=== PATIENT | female | born 1955 | race Caucasian/White ===

== ENCOUNTER → 2018-01-11 09:31 | Outpatient (CLI) | payer OTHER, SELFPAY ==
--- NOTE | 2018-01-11 | DI.MG.S_ITS ---
BILATERAL DIGITAL SCREENING MAMMOGRAM 3D/2D WITH CAD: 01/11/2018 CLINICAL: Routine screening. Comparison is made to exams dated: 09/03/2016 mammogram, 04/22/2015 mammogram, and 04/17/2014 mammogram - [facility]. The tissue of both breasts is extremely dense, which lowers the sensitivity of mammography. Current study was also evaluated with a Computer Aided Detection (CAD) system. No significant masses, calcifications, or other findings are seen in either breast. There has been no significant interval change. IMPRESSION: NEGATIVE There is no mammographic evidence of malignancy. A 1 year screening mammogram is recommended. This exam was interpreted at Station ID: [id number]. NOTE: For mammograms, a report in lay terms will be sent to the patient. Approximately 15% of breast malignancies will not be visualized mammographically. In the management of a palpable breast mass, a negative mammogram must not discourage biopsy of a clinically suspicious lesion. Electronically Signed By: Nevaeh molina/yuriy:01/11/2018 10:21:19 letter sent: Normal Exam ACR BI-RADS Category 1: Negative 3341F
--- NOTE | 2018-01-11 | DI.RAD.S_ITS ---
PROCEDURE: XR WRIST LT MIN 3V INDICATIONS: LEFT WRIST PAIN TECHNIQUE: 3 views of the wrist were acquired. COMPARISON: [facility], CR, XR HAND LEFT 3+V, 03/30/2016, 12:33 PM. FINDINGS: Bones: No fractures or dislocations. No suspicious bony lesions. Mild subluxation of the first metacarpal phalangeal joint is unchanged. Marginal spurring of the first metacarpal head. Cystic changes in the distal pole of the scaphoid again noted. Scaphoid view: Not requested Soft tissues: No suspicious soft tissue calcifications. IMPRESSION: 1. No acute bony abnormality. 2. 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 3. Probable interosseous ganglion distal pole of the scaphoid. Dictated by: Zheng Duque M.D. on 01/11/2018 at 10:27 Approved by: Zheng Duque M.D. on 01/11/2018 at 10:30
== END ==
PROVIDERS: Family Provider Family Medicine; PCP Family Medicine; Visit Provider Family Medicine
DX: Z12.31 Encounter for screening mammogram for malignant neoplasm of breast (principal); M19.032 Primary osteoarthritis, left wrist; S63.112A Subluxation of metacarpophalangeal joint of left thumb, initial encounter; M25.532 Pain in left wrist
CPT/HCPCS: 73110; 77063; 77067

== ENCOUNTER → 2018-07-27 13:48 | Outpatient (REF) | payer OTHER, SELFPAY | LOC: LAB 13:48 | PROVIDERS: Family Provider Family Medicine; PCP Family Medicine; Visit Provider Otolaryngology Facial Plastic Surgery | DX: L03.211 Cellulitis of face (principal); G50.1 Atypical facial pain | CPT/HCPCS: 87070; 87075; 87077; 87147; 87186; 87205 ==

== ENCOUNTER → 2019-01-12 12:17 | Outpatient (CLI) | payer OTHER, SELFPAY ==
--- NOTE | 2019-01-12 | DI.MG.S_ITS ---
BILATERAL DIGITAL SCREENING MAMMOGRAM 3D/2D WITH CAD: 01/12/2019 CLINICAL: Routine screening. Comparison is made to exams dated: 01/11/2018 mammogram, 09/03/2016 mammogram, and 04/22/2015 mammogram - [facility]. The tissue of both breasts is extremely dense, which lowers the sensitivity of mammography. Current study was also evaluated with a Computer Aided Detection (CAD) system. There are benign calcifications in both breasts. No significant masses, calcifications, or other findings are seen in either breast. There has been no significant interval change. IMPRESSION: There is no mammographic evidence of malignancy. A 1 year screening mammogram is recommended. This exam was interpreted at Station ID: [id number]. NOTE: For mammograms, a report in lay terms will be sent to the patient. Approximately 15% of breast malignancies will not be visualized mammographically. In the management of a palpable breast mass, a negative mammogram must not discourage biopsy of a clinically suspicious lesion. Electronically Signed By: John vee/yuriy:01/12/2019 16:32:03 letter sent: Normal Exam ACR BI-RADS Category 2: Benign Finding(s) 3342F
== END ==
PROVIDERS: PCP Family Medicine; Visit Provider Family Medicine
DX: Z12.31 Encounter for screening mammogram for malignant neoplasm of breast (principal)
CPT/HCPCS: 77063; 77067

== ENCOUNTER 2019-06-27 06:53 | Day surgery (SDC) | payer OTHER, SELFPAY ==
[2019-06-27 07:20] VITALS: BP 140/84; PULSE 67; RESP 16; TEMP 36.4; O2SAT 100; BMI 17.4
--- NOTE | 2019-06-27 07:46 | PM.HP.1 ---
History of Present Illness History of Present Illness Date Patient Seen: 06/27/19 Time Patient Seen: 07:46 Chief complaint: [id number] SCREENING COLONOSCOPY Narrative: The patient is a woman here for screening colonoscopy. She has been having vague abdominal pains. Last exam was about 5 years ago. Patient History Medical History Lipoma (Acute) Surgical History H/O tubal ligation (Acute) S/P right rotator cuff repair (Acute) Family & Social History Social History: household members significant other Tobacco & Substance use: Smoking Status Never smoker Meds Home Medications and Allergies Home Medications Medication Instructions Recorded Confirmed Type trazodone 150 mg PO ONCE HS #0 01/09/08 06/27/19 History [STOOL SOFTENER] 1 cap PO QDAY #0 04/10/11 06/27/19 History hydrocodone-acetaminophen 1 tab PO Q4-6H #0 04/10/11 06/27/19 History methocarbamol 750 mg PO BEDTIME #0 04/10/11 06/27/19 History venlafaxine [Effexor XR] 150 mg PO BEDTIME 06/27/19 06/27/19 History Allergies Allergy/AdvReac Type Severity Reaction Status Date / Time erythromycin base Allergy Mild UNSURE Verified 06/27/19 07:08 [ERYTHROMYCIN BASE] promethazine [From PHENERGAN] Allergy Mild RESTLESS Verified 06/27/19 07:08 LEGS Sulfa (Sulfonamide Allergy Mild HANDS RED Verified 06/27/19 07:08 Antibiotics) AND SWOLLEN [SULFA (SULFONAMIDE ANTIBIOTICS)] Tetracyclines [TETRACYCLINES] Allergy Mild UPSET Verified 06/27/19 07:08 STOMACH Review of Systems Review of Systems ROS Unobtainable: All systems reviewed & are unremarkable except as noted in HPI and below Cardiovascular Comments: Heart occasionally skips of the Exam Vital Signs (past 8 hours): - 06/27/19 07:20 Temperature 97.6 F Pulse Rate 67 Respiratory Rate 16 Blood Pressure 140/84 Pulse Oximetry 100 Oxygen Delivery Method Room Air Narrative Exam Narrative: Pleasant cooperative patient no apparent distress. Lungs are clear to auscultation. No rales or rhonchi. Heart regular rate and rhythm no murmur gallop. Abdomen is soft nontender without mass. No obvious hernias. Patient is alert and oriented x3. Assessment & Plan Assessment & Plan narrative: The patient for a screening colonoscopy. I have discussed the procedure with them. Risks of bleeding, perforation which would necessitate major operation, failure to find remove all lesions, the potential tattoo were all discussed. All questions were answered. They wished to proceed.
--- NOTE | 2019-06-27 07:47 | PM.PREOP ---
Pre-operative Note Interval Note History & Physical reviewed/Exam performed by Physician: Yes Changes to H&P: No ASA Class (for procedural sedation): I
[2019-06-27] MEDS: MIDAZOLAM 5 MG/5 ML VIAL IV (08:15)
[2019-06-27] MEDS: fentaNYL 250 MCG/5 ML INJ IV (08:15)
--- NOTE | 2019-06-27 08:25 | PM.OP.ENDO ---
Operative Date/Time/Diagnoses Date of procedure: 06/27/19 Time of procedure: 08:25 Pre-op diagnosis: Screening exam. Vague abdominal pain. Last exam 5 years ago. Post-op diagnosis: same Procedure & Clinicians Study performed: Colonoscopy Same procedure as scheduled: Yes Indications: Screening Surgeon: Tesfaye Dickey Procedure Notes SCOAP/Timeout: Performed Procedure in detail: The patient was placed in the left lateral decubitus position and underwent IV sedation directed by the surgeon consisting of fentanyl and Versed. Digital exam was remarkable for decreased sphincter tone. The scope was inserted and advanced through the rectum into the sigmoid, descending, transverse, and ascending colon. The cecum was reached identified by the ileocecal valve and the appendiceal opening. The scope was gradually brought out. No Polyps were found. The scope ultimately was retroflexed in the rectum. The appearance was remarkable for small hemorrhoids without ulceration. The scope was removed and the patient tolerated the procedure well. Prep was very good Scope withdrawal time: Over 8 minutes Sedation minutes: 22 Findings: other findings (Normal exam) Specimen(s): none sent Complications: none Post-procedure Recommendations: Colonscopy in 10 years Follow up: as needed Disposition: PACU
[2019-06-27 08:27] VITALS: BP 105/64; PULSE 52; RESP 16; TEMP 35.9; O2SAT 99
[2019-06-27 08:32] VITALS: BP 109/74; PULSE 58; RESP 16; TEMP 35.9; O2SAT 99
[2019-06-27 08:38] VITALS: BP 124/72; PULSE 54; RESP 13; TEMP 35.9; O2SAT 98
[2019-06-27 08:43] VITALS: BP 124/77; PULSE 47; RESP 14; TEMP 36.1; O2SAT 99
[2019-06-27 08:50] VITALS: BP 114/73; PULSE 47; RESP 15; TEMP 36.5; O2SAT 98
== END 2019-06-27 09:08 | disposition home or self-care (01) ==
PROVIDERS: PCP Family Medicine; Visit Provider Specialist
PROC: 0DJD8ZZ Inspection of Lower Intestinal Tract, Via Natural or Artificial Opening Endoscopic (ICD-10-PCS; CPT 45378; principal; 2019-06-27 07:45)
DX: R10.84 Generalized abdominal pain (principal)
CPT/HCPCS: 45378; 99152; J2250; J3010

== ENCOUNTER → 2019-11-20 11:58 | Outpatient (CLI) | payer OTHER, SELFPAY ==
--- NOTE | 2019-11-20 | DI.RAD.S_ITS ---
PROCEDURE: XR KNEE RT 3V INDICATIONS: Right knee pain TECHNIQUE: 3 views of the knee were acquired. COMPARISON: None. FINDINGS: Bones: No fractures or dislocations. No suspicious bony lesions. No definite joint space narrowing. As Soft tissues: Small joint effusion. No suspicious soft tissue calcifications. IMPRESSION: Small joint effusion Otherwise, grossly unremarkable examination. If the patient's pain or other symptoms persist, consider further evaluation with MRI Dictated by: Zaire Olivera M.D. on 11/20/2019 at 14:51 Approved by: Zaire Olivera M.D. on 11/20/2019 at 14:55
== END ==
PROVIDERS: PCP Family Medicine; Referring Provider Family Medicine; Visit Provider Family Medicine
DX: M25.561 Pain in right knee (principal); M25.461 Effusion, right knee
CPT/HCPCS: 73562

== ENCOUNTER → 2020-01-23 16:06 | Outpatient (CLI) | payer OTHER, SELFPAY ==
--- NOTE | 2020-01-23 16:07 | DI.MG.S_ITS ---
BILATERAL DIGITAL SCREENING MAMMOGRAM 3D/2D WITH CAD: 01/23/2020 CLINICAL: Routine screening. Comparison is made to exams dated: 01/12/2019 mammogram, 01/11/2018 mammogram, 09/29/2016 mammogram, and 09/03/2016 mammogram - [facility]. The tissue of both breasts is extremely dense, which lowers the sensitivity of mammography. Current study was also evaluated with a Computer Aided Detection (CAD) system. There are benign calcifications in both breasts. There also are benign post operative findings in the right breast. No significant masses, calcifications, or other findings are seen in either breast. There has been no significant interval change. IMPRESSION: BENIGN There is no mammographic evidence of malignancy. A 1 year screening mammogram is recommended. This exam was interpreted at Station ID: [id number]. NOTE: For mammograms, a report in lay terms will be sent to the patient. Approximately 15% of breast malignancies will not be visualized mammographically. In the management of a palpable breast mass, a negative mammogram must not discourage biopsy of a clinically suspicious lesion. Electronically Signed By: John vee/yuriy:01/23/2020 16:48:50 letter sent: Normal Exam ACR BI-RADS Category 2: Benign Finding(s) 3342F
== END ==
PROVIDERS: PCP Family Medicine; Referring Provider Family Medicine; Visit Provider Family Medicine
DX: Z12.31 Encounter for screening mammogram for malignant neoplasm of breast (principal)
CPT/HCPCS: 77063; 77067

== ENCOUNTER → 2020-02-22 12:43 | Outpatient (CLI) | payer OTHER, SELFPAY ==
--- NOTE | 2020-02-22 | DI.RAD.S_ITS ---
PROCEDURE: XR CHEST 2V INDICATIONS: Cough TECHNIQUE: 2 views of the chest were acquired. COMPARISON: [facility], CHEST 2 VIEW, 03/03/2017, 14:46. [facility], CHEST 2 VIEW, 02/03/2017, 10:41. FINDINGS: Surgical changes and devices: None. Lungs and pleura: Lungs are clear. No pleural effusions or pneumothorax. Mediastinum: Mediastinal contours are normal. Heart size is normal. Bones and chest wall: No suspicious bony abnormalities. Soft tissues appear unremarkable. IMPRESSION: Normal for age, source of current cough symptoms is not seen. Dictated by: Prashant Oneill M.D. on 02/22/2020 at 13:40 Approved by: Prashant Oneill M.D. on 02/22/2020 at 13:40
== END ==
PROVIDERS: PCP Family Medicine; Referring Provider Family Medicine; Visit Provider Family Medicine
DX: R05 Cough (principal)
CPT/HCPCS: 71046

== ENCOUNTER → 2020-06-18 13:11 | Outpatient (CLI) | payer OTHER, SELFPAY | PROVIDERS: PCP Family Medicine; Referring Provider Family Medicine; Visit Provider Family Medicine | DX: Z13.820 Encounter for screening for osteoporosis (principal); M85.851 Other specified disorders of bone density and structure, right thigh; Z78.0 Asymptomatic menopausal state; Z87.891 Personal history of nicotine dependence | CPT/HCPCS: 77080 ==

== ENCOUNTER → 2020-07-15 09:47 | Outpatient (CLI) | payer OTHER, SELFPAY ==
--- NOTE | 2020-07-15 | DI.RAD.S_ITS ---
PROCEDURE: XR SHOULDER RT MIN 2V INDICATIONS: RIGHT SHOULDER PAIN TECHNIQUE: 3 views of the shoulder were acquired. COMPARISON: [facility], SHOULDER MINIMUM 2 VIEW LEFT, 10/22/2011, 13:06. [facility], SHOULDER MINIMUM 2VIEW RIGHT, 03/13/2010, 13:54. FINDINGS: Bones: No acute fracture or dislocation. Moderate degenerative changes are seen at the glenohumeral joint with joint space narrowing and marginal osteophyte formation. There is postsurgical widening of the acromioclavicular joint. Cervical spinal fusion hardware is incidentally noted. Soft tissues: No suspicious soft tissue calcifications. IMPRESSION: Moderate glenohumeral osteoarthrosis. Chronic postsurgical changes are noted in the acromioclavicular joint. Dictated by: Izaiah Montejo M.D. on 07/15/2020 at 11:10 Approved by: Izaiah Montejo M.D. on 07/15/2020 at 11:13
== END ==
PROVIDERS: PCP Family Medicine; Referring Provider Family Medicine; Visit Provider Family Medicine
DX: M25.511 Pain in right shoulder (principal); M19.011 Primary osteoarthritis, right shoulder; Z98.1 Arthrodesis status
CPT/HCPCS: 73030

== ENCOUNTER → 2020-09-01 10:09 | Outpatient (CLI) | payer OTHER, SELFPAY ==
--- NOTE | 2020-09-01 | DI.MRI.S_ITS ---
PROCEDURE: MR SHOULDER RT WO CON INDICATIONS: Ganglion, unspecified site TECHNIQUE: Noncontrast oblique coronal T2 fast spin echo with fat saturation, oblique sagittal T1 spin echo and T2 fast spin echo with fat saturation, axial T1 spin echo and T2 fast spin echo with fat saturation through the shoulder. COMPARISON: [facility], CR, XR SHOULDER RT MIN 2V, 07/15/2020, 10:05. [facility], MR, SHOULDER WITHOUT CONTRAST, 03/17/2012, 9:32. FINDINGS: Image quality: Excellent. Rotator cuff: There is tendinosis and moderate grade articular and bursal surface partial thickness tear involving distal supraspinatus at its insertion on the humeral head with suggestion of focal full-thickness perforation involving anterior fibers of distal supraspinatus approximately 1.5 centimeters from its insertion on the humeral head. Distal infraspinatus and subscapularis tendinosis is seen. Sagittal images demonstrate mild supraspinatus muscle atrophy. Bones and bursae: Moderate acromioclavicular joint osteoarthritic changes are seen with superior migration of humeral head in relation to glenoid and marginal osteophyte formation. Large amount of subacromial subdeltoid bursal fluid is seen. There is suggestion of prior surgical widening of acromioclavicular joint. There is AC joint fluid with lobulated and septated cystic structure superior to the AC joint measures up to 2.1 x 1.7 x 1.5 cm in size. Capsule and soft tissues: Signal abnormality and contour irregularity involving superior anterior labrum at 12 to 2 o'clock position is seen. Degenerative changes also noted throughout labrum. The long head of the biceps tendon demonstrates normal location and morphology. The rotator interval appears normal, without fibrosis. The coracohumeral ligament is normal in thickness. IMPRESSION: 1. Likely prior surgical widening of acromioclavicular joint with moderate amount of AC joint fluid and a septated and lobulated cyst superior to the acromioclavicular joint measures 2.1 x 1.7 x 1.5 cm in size likely represent acromioclavicular joint cyst. 2. Moderate glenohumeral joint osteoarthritis. Large amount of subacromial subdeltoid bursal fluid. 3. Tendinosis and moderate grade articular and bursal surface partial thickness tear involving distal supraspinatus with suggestion of focal area of full-thickness perforation involving anterior fibers of distal supraspinatus 1.5 cm from its insertion on the humeral head. Distal infraspinatus and subscapularis tendinosis. Mild supraspinatus muscle atrophy. 4. Suggestion of focal superior anterior labral tear at 12 to 2 o'clock position. Degenerative changes throughout labrum. Dictated by: Lan Khan M.D. on 09/02/2020 at 10:05 Approved by: Lan Khan M.D. on 09/02/2020 at 10:25
== END ==
PROVIDERS: PCP Family Medicine; Referring Provider Orthopaedic Surgery; Visit Provider Orthopaedic Surgery
DX: M19.011 Primary osteoarthritis, right shoulder (principal); M75.111 Incomplete rotator cuff tear or rupture of right shoulder, not specified as traumatic; M67.40 Ganglion, unspecified site
CPT/HCPCS: 73221

== ENCOUNTER → 2021-03-14 11:55 | Outpatient (CLI) | payer OTHER, SELFPAY ==
[2021-03-14 14:10] LABS: COVID19 -Nasal RAPID Negative (Negative)
== END ==
PROVIDERS: PCP Family Medicine; Visit Provider Nurse Practitioner
DX: Z20.822 Contact with and (suspected) exposure to COVID-19 (principal); Z01.812 Encounter for preprocedural laboratory examination
CPT/HCPCS: 87635

== ENCOUNTER → 2021-03-14 14:53 | Outpatient (CLI) | payer OTHER, SELFPAY ==
--- NOTE | 2021-03-14 | DI.MG.S_ITS ---
BILATERAL DIGITAL SCREENING MAMMOGRAM 3D/2D WITH CAD: 03/14/2021 CLINICAL: Routine screening. Comparison is made to exams dated: 01/23/2020 mammogram, 01/12/2019 mammogram, and 01/11/2018 mammogram - [facility]. The tissue of both breasts is extremely dense, which lowers the sensitivity of mammography. Current study was also evaluated with a Computer Aided Detection (CAD) system. There are benign calcifications in both breasts. There also are benign post operative findings in the right breast. No significant masses, calcifications, or other findings are seen in either breast. There has been no significant interval change. IMPRESSION: BENIGN There is no mammographic evidence of malignancy. A 1 year screening mammogram is recommended. This exam was interpreted at Station ID: [id number]. NOTE: For mammograms, a report in lay terms will be sent to the patient. Approximately 15% of breast malignancies will not be visualized mammographically. In the management of a palpable breast mass, a negative mammogram must not discourage biopsy of a clinically suspicious lesion. Electronically Signed By: Izaiah hein/yuriy:03/14/2021 15:48:04 letter sent: Normal Exam ACR BI-RADS Category 2: Benign Finding(s) 3342F
== END ==
PROVIDERS: PCP Family Medicine; Referring Provider Family Medicine; Visit Provider Family Medicine
DX: Z12.31 Encounter for screening mammogram for malignant neoplasm of breast (principal)
CPT/HCPCS: 77063; 77067

== ENCOUNTER 2021-03-17 10:57 | Day surgery (SDC) | payer OTHER, SELFPAY ==
[2021-03-06 09:41] VITALS: BMI 17.9
[2021-03-17] VITALS (7 sets, daily range): BP systolic 136–157; BP diastolic 44–83; PULSE 52–64; RESP 15–18; TEMP 36.1–36.4; O2SAT 96–100; BMI 17.9
--- NOTE | 2021-03-17 | PATH_ITS ---
[facility] Accession Number: [id number] . 01 Material submitted: . body - AC JOINT CYST . 01 Diagnosis: AC Joint, Excision: Fibroconnective tissue with fibrous lined cystic space, myxomatous changes, and degenerative changes, consistent with ganglion cyst. MRV 03/19/2021 0856 Local . 01 Electronically signed: . Hardy Geller MD, Dermatopathologist NPI- [id number] . 01 Gross description: . The specimen is received in formalin, labeled AC joint cyst and consists of two pedroza-pink fragments of soft tissue measuring 3.6 x 2.5 x 2.0 cm in aggregate. The fragments are inked blue and sectioned to reveal a 2.5 x 1.5 x 1.0 cm pedroza-white mucoid cyst. [employer] Teacher sections are submitted in cassette A1. ([id number]) /MRV 03/18/2021 1010 Local . 01 Pathologist provided ICD-10: M67.40 . 01 CPT . 630452 Performed at: 01 [facility] [address] [place] [address] [address], [place], [place] [id number] MD Olayinka Wang MD Phone: [phone]
[2021-03-17] MEDS: ACETAMINOPHEN 325 MG TABLET 975 MG PO (11:22)
[2021-03-17] MEDS: CELECOXIB 200 MG CAPSULE PO (11:23)
[2021-03-17] MEDS: LACTATED RINGERS 1,000 ML 42 ML IV (11:34)
--- NOTE | 2021-03-17 12:11 | PM.PREOP ---
Pre-operative Note COVID-19 COVID-19 status: Negative Result date/Date tested (Pos, Neg/Pending): 03/14/21 Interval Note History & Physical reviewed/Exam performed by Physician: Yes Changes to H&P: No
--- NOTE | 2021-03-17 12:51 | SUR.PREOP ---
Block start time 1226 . Monitoring initiated and maintained throughout procedure. Oxygen and medications given per anesthesiologist instructions. Patient remained stable throughout procedure, no adverse reactions noted. Block end time 1236 .
[2021-03-17] MEDS: CEFAZOLIN 1 GM VIAL IV (13:22)
--- NOTE | 2021-03-17 13:41 | P.PCN_ITS ---
Procedures Date/Time Date of procedure: 03/17/21 Time of procedure: 12:45 General Procedure description: Ultrasound guided interscalene brachial plexus nerve block for post op pain control after right shoulder arthroscopy by Dr. Thomas. Risk and benefits of procedure discussed with patient. ASA monitoring applied to patient. O2 given via nasal cannula. 2 mg Versed and 50 mcg fentanyl given for procedural sedation. Skin site was prepped with chlorhexidine and allowed to fully dry. Sterile gloves, mask, hat and probe cover were used to maintain sterility. 2% lidocaine and 30ga needle was used to make a small skin wheal at needle insertion site. Under ultrasound guidance, a 21ga 50mm Pajunk needle was directed into the interscalene groove (middle/anterior scalenes) near the brachial plexus. Patient reported no parasthesias. After negative aspiration, 15 mL 0.5% ropivicaine and 7.5mg dexamethasone were injected around brachial plexu s. Patient tolerated procedure well.
--- NOTE | 2021-03-17 13:49 | SUR.OPER ---
Lateral on padded OR bed with neville bag positioner, head on pillow, gel axillary roll in place, bottom leg bent with gel pad under knee to foot, upper leg straight and supported with pillows. Operative arm secured in shoulder positioning suspension device. non-operative arm secured on padded arm board. Safety belt at hip, tape over blanket securing lower legs.
[2021-03-17] MEDS: BUPIVACAINE 0.5% (PF) VIAL 30 ML INJ (14:11)
[2021-03-17] MEDS: SODIUM CHLORIDE IRRIG SOLUTION 3,000 ML, EPINEPHrine 1 MG IRR (14:12)
--- NOTE | 2021-03-17 15:01 | P.OP_ITS ---
Operative Date/Time/Diagnoses Date of procedure: 03/17/21 Time of procedure: 15:01 Pre-op diagnosis: 1. Right shoulder rotator cuff tear 2. Acromioclavicular synovial cyst, ?geyser sign? Post-op diagnosis: same Procedure & Clinicians Procedure: 1. Revision arthroscopic rotator cuff repair 2. Open excision of acromioclavicular cyst Same procedure as scheduled: Yes Indications: The patient has had a slowly enlarging mass over her acromioclavicular joint. This appears to be consistent with a ganglion cyst however there also appears to be rotator cuff tear with extension of the fluid from the glenohumeral joint all the way into the cyst on her MRI. This would be consistent with a ?geyser sign?. She has agreed to repair of the cuff tear and excision of the cyst with possible revision distal clavicle excision after discussion the risks benefits and alternatives. Risks discussed included but were not limited to: Failure to improve, recurrence of the cyst, stiffness, infection, nerve damage, deep venous thrombosis, pulmonary embolism, stroke, myocardial infarction, permanent paralysis and . Surgeon: River Thomas Click Yes if Unassisted: Yes Anesthesia Type: General, Peripheral nerve block and Local Operative Notes Findings: 1. Extensive arthritic change of the glenohumeral joint with grade 4, exposed bone, changes on the humeral head and grade 3 changes on the glenoid. 2. Extensive degenerative tearing of the glenoid labrum with Vicente complex. 3. Intact appearing biceps 4. Intact appearing subscapularis 5. Supraspinatus appeared to be largely intact however there was an undersurface tear with a flap which exposed fenestrations through the supraspinatus at the site of her prior rotator cuff repair. 6. Infraspinatus intact 7. Small osteophyte forming in the axillary pouch with no loose bodies 8. Bursal surface of the rotator cuff with obvious area of thinning overlying the abnormalities in the glenohumeral joint. In addition upon entering the suba cromial bursa with the arthroscope fluid did return through the cannula suggesting continuity with the glenohumeral joint. 9. Scarring in the subacromial bursa compatible with prior subacromial decom pression with no need for recurrent acromioplasty 10. Acromioclavicular joint not visualized arthroscopically. 11. Approximately 2 cm x 4 cm multiloculated ganglion cyst superficial to the acromioclavicular joint. Closure Type: primary Specimen(s): other (Cyst wall) Prosthetic devices, grafts, tissues, transplants, or devices: One Mitek triple threaded Healix BR 5.5 mm suture anchor Applied: implant(s) Estimated Blood Loss (mL): 10 Blood products transfused: none Procedure in detail: The patient was seen in the preoperative area where she identified her right shoulder as the operative site this was marked with my initials. She was taken to the operating room and placed on the operating room table in the supine position after undergoing an interscalene block. In the ope rating room she received preoperative antibiotics. Right shoulder was examined under anesthesia with findings of normal motion and no excessive laxity. The cyst was noted. Patient was repositioned the left lateral decubitus position with padding for all pressure points. She was stabilized in this position using the neville bag. The right arm was prepared for the fingertips the base the neck with ChloraPrep in the usual fashion and draped through sterile drapes. The arm was placed in 10 lb of balanced skin suspension. Subcutaneous landmarks were outlined on the skin with a marking pen and portal sites selected. The posterior portal was created the arthroscope inserted into the glenohumeral joint. Diagnostic arthroscopic results are given above. An anterior portal was used for the shaver which was used to debride the fraying of the labrum and the flap of the rotator cuff. The abnormal area of rotator cuff was marked with a percutaneously placed 0 Prolene suture. The arthroscope was then withdrawn from the glenohumeral joint and placed in the subacromial space through the posterior portal. The suture was identified and it was found to be in the center of abnormal appearing cuff tissue. It should be noted that as the scope was introduced into the subacromial space there was return of arthroscopic fluid which implied that there had been a leak from the glenohumeral joint consistent with a rotator cuff tear. The area of thinned cuff was excised using a shaver through the lateral portal. A superolateral portal was created for anchor placement. After preparing the greater tuberosity to exposed bone the anchor was placed in the greater tuberosity in approximately a 0.5 cm to cm size rotator cuff tear that had been created by removing the abnormal tissue. The sutures from this anchor were placed with 2 of the 3 sutures being placed with 1 limb in each of the anterior and posterior leaflets and the 3rd suture being placed at the apex of the tear over both of the other sutures to provide a grasping suture. These sutures were sequentially tied and we then confirmed appropriate repair by viewing for the lateral and posterior portals. At this point all arthroscopic equipment was withdrawn. An approximately 3 cm incision was created in Sendy's line overlying the large cyst at the acromioclavicular joint. The cyst was from surrounding tissue and the wall sent for pathology. This did appear to be full of synovial fluid and did not appear to be pathologic in any other way. The stalk of the cyst was identified on the fascia above the acromioclavicular joint. This was oversewn with 0 Vicryl to help close it off. The wound was then copiously irrigated. The arthroscopic portals were closed with 4-0 Monocryl and Steri- Strips. The cyst wound was closed with interrupted 3-0 Vicryl, running subcuticular 4-0 Monocryl and Steri-Strips. The subcutaneous tissues were injected with 10 mL 0.5% Marcaine for postoperative pain control. The wounds were dressed with sterile 4x4s, a sterile ABD and adhesive dressing. The patient's arm was placed in a sling and she was transported to the recovery room in good condition having tolerated the procedure well. Complications: none Post-operative Condition: stable Disposition: PACU Plan for aftercare: The patient will be maintained on a standard small size rotator cuff tear repair protocol. She will be discharged home later today.
--- NOTE | 2021-03-17 15:02 | SUR.PHASEI ---
1451 Patient from OR via stretcher with Dr Du and Julissa HILL after gen anesth breathing unassisted on room air. Pt moving in bed, then settles. Sling re-positioned. Shadow Drainage on dressing marked.
== END 2021-03-17 16:10 | disposition home or self-care (01) ==
PROVIDERS: PCP Family Medicine; Referring Provider Orthopaedic Surgery; Visit Provider Orthopaedic Surgery
PROC: (CPT 29827; principal; 2021-03-17 13:30)
DX: M75.111 Incomplete rotator cuff tear or rupture of right shoulder, not specified as traumatic (principal); M19.011 Primary osteoarthritis, right shoulder; M25.711 Osteophyte, right shoulder; M67.411 Ganglion, right shoulder; F32.9 Major depressive disorder, single episode, unspecified
CPT/HCPCS: 29827; 23073; 64450; J0171; J0690; J2250; J2704; J3010

== ENCOUNTER → 2021-09-12 09:48 | Outpatient (CLI) | payer MEDICARE, OTHER, SELFPAY ==
[2021-09-12 10:43] LABS: Add Manual Diff / Slide Review NO; Basophils Absolute Auto 0 /uL (0-100); Eosinophils Absolute Auto 200 /uL (0-450); Eosinophils Percent Auto 4.6 % (2-4); Hematocrit 41.2 % (36-46); Lymphocytes Absolute Auto 900 /uL (1100-4500); Lymphocytes Percent Auto 23.4 % (25-40); Mean Corpuscular HGB Conc 33.9 % (30-36); Mean Corpuscular Hemoglobin 31.1 PG (26-34); Mean Corpuscular Volume 91.7 fL (80-100); Monocytes Absolute Auto 300 /uL (0-900); Monocytes Percent Auto 7.3 % (3-14); Neutrophils Absolute Auto 2400 /uL (1500-7000); Neutrophils Percent Auto 63.7 % (50-75); Platelet Count 278 X10^3/uL (150-400); Red Blood Cell Count 4.49 X10^6/uL (4.0-5.2); Red Cell Distribution Width 13.5 % (11.6-14.8); White Blood Cell Count 3.8 X10^3/uL (4.5-11.0)
[2021-09-12 10:55] LABS: Alanine Aminotransferase 14 IU/L (<35); Albumin 4.1 g/dL (3.5-5.0); Albumin Globulin Ratio 1.6 (1.0-2.8); Alkaline Phosphatase 43 U/L (38-126); Aspartate Aminotransferase 27 IU/L (14-36); BUN Creatinine Ratio 18.1 (6-22); Bilirubin Total 0.4 mg/dL (0.2-1.3); Blood Urea Nitrogen 15 mg/dL (7-17); Calcium 8.7 mg/dL (8.4-10.2); Carbon Dioxide 30 mmol/L (22-32); Chloride 109 mmol/L (98-107); Cholesterol 204 mg/dL (140-199); Estimated Glomerular Filt Rate > 60.0 mL/min (>60); Globulin 2.6 g/dL (1.7-4.1); Glucose 105 mg/dL (80-110); HDL Cholesterol 85 mg/dL (40-60); HEMOLYSIS < 15 (0-50); LDL Cholesterol Calculated 108 mg/dL (<100); Potassium 4.6 mmol/L (3.4-5.1); Sodium 143 mmol/L (137-145); Total Protein 6.7 g/dL (6.3-8.2); Triglycerides 56 mg/dL (35-150)
[2021-09-12 11:26] LABS: Thyroid Stimulating Hormone 1.14 uIU/mL (0.47-4.68)
== END ==
PROVIDERS: PCP Family Medicine; Referring Provider Family Medicine; Visit Provider Family Medicine
DX: Z00.00 Encounter for general adult medical examination without abnormal findings (principal); Z13.220 Encounter for screening for lipoid disorders; M79.7 Fibromyalgia; F41.8 Other specified anxiety disorders; D70.9 Neutropenia, unspecified
CPT/HCPCS: 36415; 80053; 80061; 84443; 85025

== ENCOUNTER → 2022-04-01 08:04 | Outpatient (CLI) | payer MEDICARE, OTHER, SELFPAY ==
--- NOTE | 2022-04-01 08:07 | DI.RAD.S_ITS ---
PROCEDURE: FL SHOULDER INJECTION MR/CT RT INDICATIONS: GANGLION/EVAL FOR CUFF TEAR COMPARISON: [facility], MR, MR SHOULDER RT W CON, 04/01/2022, 9:03. TECHNIQUE: The indications, alternatives, benefits, risks, and complications of the procedure were explained to the patient. Written informed consent was obtained and placed in the chart. The shoulder was examined fluoroscopically and a site for needle placement chosen for entry into the glenohumeral joint from an anterior approach. The skin was prepped and draped in a sterile fashion, and 1% lidocaine infiltrated from skin down to joint capsule. A spinal needle was inserted into the glenohumeral joint, and a small amount of iodinated contrast media injected to confirm intra-articular placement of the needle tip. This was followed by approximately 12 mL dilute solution of a gadolinium containing MR contrast agent. The needle was removed and a dressing was applied. The patient was given postprocedural instructions and sent to the MR suite for MR imaging. FINDINGS: A single fluoroscopic spot image demonstrates intra-articular location of injected iodinated contrast. IMPRESSION: Successful fluoroscopically guided administration of dilute Gadolinium solution into the shoulder joint for MR arthrogram. Dictated by: John Stafford M.D. on 04/01/2022 at 10:48 Approved by: John Stafford M.D. on 04/01/2022 at 10:49
--- NOTE | 2022-04-01 08:08 | DI.MRI.S_ITS ---
PROCEDURE: MR SHOULDER RT W CON INDICATIONS: GANGLION/EVAL FOR CUFF TEAR TECHNIQUE: After the administration of 12 mL of dilute intra-articular Gadolinium contrast, oblique coronal T1 and T2 spin echo with fat saturation, oblique sagittal T1 spin echo with and without fat saturation, oblique sagittal T2 fast spin echo with fat saturation, axial T1 spin echo with fat saturation through the shoulder. COMPARISON: None. FINDINGS: Image quality: Motion degraded Rotator cuff: No significant atrophy Teres minor: Intact Supraspinatus: There is tendinosis and interstitial and partial thickness bursal sided tears. At the junction between the supraspinatus and infraspinatus, there is a focal perforating tear. Infraspinatus: Partial thickness articular sided tear. Tendinosis. Subscapularis: Tendinosis. Bones and bursae: GH joint: [id number] degenerative changes. The cartilage not well assessed due to motion artifact. There is no subchondral edema or cystic changes. AC joint: Moderate degenerative changes, with articular contrast extending into the joint. Postsurgical widening. Humeral head: No acute edema. Prior repair anchor. Scapula and acromion: Postsurgical widening of the joint. No acute fracture. Bursa: Filled with contrast and fluid. Capsule: Labrum: Is difficult to assess in the setting of marked motion artifact. There is no discrete undercutting fluid or contrast signal to indicate tear. There is some attenuation indicating chronic wear. The superior labrum in particular is not well assessed due to motion. Long head biceps tendon: Intact IGHL: Intact Rotator interval: Preserved fat signal Soft tissues: No axillary adenopathy. Lungs are not well seen. IMPRESSION: Motion degraded MR arthrography. In particular, the labrum is not well assessed. Postsurgical changes of the acromioclavicular joint and cuff anchor at the humeral head. There is a perforating full-thickness tear at the supraspinatus infraspinatus junction, with contrast extending into the bursa and acromioclavicular joint. Tendinosis and partial-thickness tears as above. Dictated by: Boris Mcginnis M.D. on 04/01/2022 at 10:19 Approved by: Boris Mcginnis M.D. on 04/01/2022 at 10:28
== END ==
PROVIDERS: PCP Family Medicine; Referring Provider Orthopaedic Surgery; Visit Provider Orthopaedic Surgery
DX: M75.121 Complete rotator cuff tear or rupture of right shoulder, not specified as traumatic (principal); M67.40 Ganglion, unspecified site
CPT/HCPCS: 23350; 73222; 77002

== ENCOUNTER → 2022-04-10 15:25 | Outpatient (CLI) | payer MEDICARE, OTHER, SELFPAY ==
--- NOTE | 2022-04-10 | DI.MG.S_ITS ---
BILATERAL DIGITAL SCREENING MAMMOGRAM 3D/2D WITH CAD: 04/10/2022 CLINICAL: Routine screening. Comparison is made to exams dated: 03/14/2021 mammogram, 01/23/2020 mammogram, and 01/12/2019 mammogram - [facility]. Both breasts are extremely dense, which lowers the sensitivity of mammography (category d />75% glandular tissue). Current study was also evaluated with a Computer Aided Detection (CAD) system. There are benign calcifications in both breasts. There also are benign post operative findings in the right breast. No significant masses, calcifications, or other findings are seen in either breast. There has been no significant interval change. IMPRESSION: BENIGN There is no mammographic evidence of malignancy. A 1 year screening mammogram is recommended. Based on the Tyrer Cuzick model (a risk assessment model) the patient's lifetime risk is 13.6% and her 10 year risk is 6.7%. According to the ACR, ACS, and NCCN guidelines, an annual breast MRI exam along with mammogram is recommended if the patient's lifetime risk is 20% or greater. This exam was interpreted at Station ID: [id number]. NOTE: For mammograms, a report in lay terms will be sent to the patient. Approximately 15% of breast malignancies will not be visualized mammographically. In the management of a palpable breast mass, a negative mammogram must not discourage biopsy of a clinically suspicious lesion. Electronically Signed By: Izaiah hein/yuriy:04/10/2022 16:21:27 letter sent: Normal Exam ACR BI-RADS Category 2: Benign Finding(s) 3342F
== END ==
PROVIDERS: PCP Family Medicine; Referring Provider Family Medicine; Visit Provider Family Medicine
DX: Z12.31 Encounter for screening mammogram for malignant neoplasm of breast (principal)
CPT/HCPCS: 77063; 77067

== ENCOUNTER → 2022-08-06 10:15 | Outpatient (CLI) | payer MEDICARE, OTHER, SELFPAY ==
[2022-08-06 12:02] LABS: Add Manual Diff / Slide Review NO; Basophils Absolute Auto 0 /uL (0-100); Eosinophils Absolute Auto 100 /uL (0-450); Eosinophils Percent Auto 2.2 % (2-4); Hematocrit 42.9 % (36-46); Hemoglobin 14.5 g/dL (12.0-16.0); Lymphocytes Absolute Auto 1200 /uL (1100-4500); Lymphocytes Percent Auto 24.9 % (25-40); Mean Corpuscular HGB Conc 33.9 % (30-36); Mean Corpuscular Hemoglobin 31.2 PG (26-34); Mean Corpuscular Volume 91.9 fL (80-100); Monocytes Absolute Auto 400 /uL (0-900); Monocytes Percent Auto 8.5 % (3-14); Neutrophils Absolute Auto 3000 /uL (1500-7000); Neutrophils Percent Auto 63.4 % (50-75); Platelet Count 288 X10^3/uL (150-400); Red Blood Cell Count 4.66 X10^6/uL (4.0-5.2); Red Cell Distribution Width 13.4 % (11.6-14.8); White Blood Cell Count 4.7 X10^3/uL (4.5-11.0)
[2022-08-06 12:15] LABS: BUN Creatinine Ratio 14.1 (6-22); Blood Urea Nitrogen 12 mg/dL (7-17); Carbon Dioxide 30 mmol/L (22-32); Chloride 103 mmol/L (98-107); Estimated Glomerular Filt Rate > 60 mL/min (>60); Glucose 86 mg/dL (80-110); HEMOLYSIS < 15 (0-50); Sodium 138 mmol/L (137-145)
== END ==
PROVIDERS: PCP Family Medicine; Referring Provider Orthopaedic Surgery; Visit Provider Orthopaedic Surgery
DX: Z01.818 Encounter for other preprocedural examination (principal); M25.511 Pain in right shoulder; Z01.812 Encounter for preprocedural laboratory examination
CPT/HCPCS: 36415; 80048; 85025; 93005

== ENCOUNTER 2022-08-26 08:01 | Inpatient (IN) | payer MEDICARE, OTHER, SELFPAY ==
[2022-08-17 12:42] VITALS: BMI 17.9
[2022-08-26] VITALS (12 sets, daily range): BP systolic 116–161; BP diastolic 60–90; PULSE 54–108; RESP 1–181; TEMP 35.9–36.8; O2SAT 95–100; BMI 17.9
--- NOTE | 2022-08-26 06:00 | DI.RAD.S_ITS ---
PROCEDURE: XR SHOULDER RT 1V INDICATIONS: RIGHT TOTAL SHOULDER TECHNIQUE: 1 view of the shoulder were acquired. COMPARISON: , SHOULDER RT WO CON, 09/01/2020, 10:52. [facility], CR, XR SHOULDER RT MIN 2V, 07/15/2020, 10:05. [facility], , SHOULDER RT W CON, 04/01/2022, 9:03. FINDINGS: Bones: Right shoulder arthroplasty with prosthesis in expected position. Attending of AC joint probably secondary to acromioplasty and partial resection of the distal clavicle. No suspicious bony lesions. Visualized ribs appear intact. Soft tissues: No suspicious soft tissue calcifications. Soft tissue swelling noted. IMPRESSION: Expected postsurgical changes. Dictated by: Adwoa Tejeda M.D. on 08/26/2022 at 12:51 Approved by: Adwoa Tejeda M.D. on 08/26/2022 at 12:52
[2022-08-26] MEDS: ACETAMINOPHEN 325 MG TABLET 975 MG PO (08:44)
[2022-08-26] MEDS: PREGABALIN 75 MG CAPSULE PO (08:44)
[2022-08-26] MEDS: LACTATED RINGERS 1,000 ML 42 ML IV ×2 (08:45→10:51)
[2022-08-26] MEDS: VANCOMYCIN 1,000 MG/200 ML PIGGYBACK 200 MG IV (09:03)
--- NOTE | 2022-08-26 09:19 | PM.PREOP ---
Pre-operative Note Interval Note History & Physical reviewed/Exam performed by Physician: Yes Changes to H&P: No
[2022-08-26 09:20] LABS: COVID19 -Nasal RAPID Negative (Negative)
--- NOTE | 2022-08-26 09:23 | SUR.PREOP ---
Block start time [0904] . Monitoring initiated and maintained throughout procedure. Patient remained stable throughout procedure, no adverse reactions noted. Block end time [0912].
[2022-08-26] MEDS: CEFAZOLIN 2 GM/100 ML PREMIX 100 ML IV (10:10)
[2022-08-26] MEDS: TRANEXAMIC ACID 1,000 MG VIAL 2000 MG INJ ×2 (10:15→11:30)
--- NOTE | 2022-08-26 10:34 | SUR.OPER ---
Beach chair with Schlein shoulder positioner. Lower body on padded OR bed. Head in foam padded head cradle, secured with straps. Non-operative arm secured <90 degrees abduction. Pillow under knees. Safety belt at thigh. Cloth tape over blanket over lower legs.
[2022-08-26] MEDS: BUPIVACAINE 0.25% (PF) 30 ML, EPINEPHrine 0.15 MG INJ (10:46)
--- NOTE | 2022-08-26 12:04 | P.OP_ITS ---
Operative Date/Time/Diagnoses Date of procedure: 08/26/22 Time of procedure: 12:04 Pre-op diagnosis: Right shoulder rotator cuff tear and arthritis with ?geyser sign? above acromioclavicular joint Post-op diagnosis: same Procedure & Clinicians Procedure: Right reverse total shoulder replacement with incidental cyst evacuation Same procedure as scheduled: Yes Indications: The patient is a 67-year-old woman who previously has undergone an attempted rotator cuff repair and cyst excision as well as acromioclavicular joint Cody procedure to address a rotator cuff tear and geyser sign. This failed with failure of the rotator cuff healing and recurrence of the geyser sign. She is requested to proceed with reverse total shoulder replacement to address this issue. Risks discussed included but were not limited to: Potential failure to address the issue, stiffness, infection, nerve damage, deep venous thrombosis, pulmonary embolism, stroke, myocardial infarction, permanent paralysis and . Surgeon: River Thomas Room Service Waiter: Mandi Lewis Click Yes if Unassisted: No Anesthesia Type: General, Peripheral nerve block and Local Operative Notes Findings: Moderate arthritic change in the glenohumeral joint, recurrent rotator cuff tear and recurrent cyst above the acromioclavicular joint. Closure Type: primary Specimen(s): none sent Prosthetic devices, grafts, tissues, transplants, or devices: Implants used in this procedure manufactured by the [employer] and included an RSP reverse total shoulder system with a 30 mm screw length glenoid base plate, four locking screws measuring 22, 18, 14, and 14 mm in length, a 32- 4 glenoid head with retaining screw, a small socket 12 mm humeral stem and a small socket insert 32 mm neutral E +polyethylene humeral cup. Applied: implant(s) Estimated Blood Loss (mL): 150 Blood products transfused: none Procedure in detail: The patient was seen in the preoperative area where they identified the right shoulder as the operative site and this was marked with my initials. ?They received preoperative antibiotics and underwent the induction of an interscalene block. They were taken to the operating room and placed on the operating room table in a supine position with the underwent the induction of a general anesthetic. ?There were then repositioned in the ?beach chair? position using a dedicated positioner. ?All pressure points were well padded. The knees were slightly bent to prevent tension on the sciatic nerves. A real time operator-out was performed. The right arm was prepared from the fingertips to the base of the neck with ChloraPrep in the usual fashion and draped through sterile drapes. ?An approximately 15 cm incision was created starting at the clavicle just above the coracoid and going to the deltoid insertion. ?The deltopectoral interval was used to access the shoulder taking the vein to the lateral side. The vein was unfortunately lacerated with a retractor and was cauterized during the case. The upper 1 cm of the pectoralis major was released. The biceps tendon was identified and used as a guide to releasing the remaining subscapularis. ?The biceps itself was tenodesed over the pectoralis tendon using a suture. The subscapularis was tagged for later repair. The shoulder was dislocated and a proximal humeral osteotomy performed using an extramedullary guide. A proximal humeral protector was then placed. Retractors were placed access the glenoid. ?A 360 degree release was performed of the remaining subscapularis with care being taken to protect the axillary nerve. The soft tissues were removed circumferentially around the glenoid. ?The guide was used to drill the guide hole in the center of the inferior glenoid. ?The tap was placed and used as a guide for the reamer. ?The tap was then removed and the glenoid base plate inserted. The peripheral locking screws were then placed through the appropriate guide. A trial glenoid head was applied. We then turned our attention to the humerus. The proximal humeral protector was removed. Cylindrical reamers were used to size the canal. Broaching was then performed beginning with a small broach and working up until a line to line fit with the reamer was obtained. The guide for the proximal metaphyseal reamer was then applied and the metaphysis was reamed appropriately. ?The trial metaphyseal portion of the body was then applied to the broach. ?Trial reductions were performed and the size of the glenoid head and the cup were optimized. ?Stability was checked in maximal internal and exter nal rotation and range of motion was checked to allow access to the top of the head, internal rotation to an excess of 50? in the ?scarecrow position? and the ability to reach the groin. ?The appropriate final prosthetic components were then opened. The glenoid head was impacted into position and checked for rotational and axial stability before placing the set screw. Drill holes for repair of the subscapularis were performed and sutures placed. The humeral prosthetic was then impacted into position. The humeral cup was placed. ?The joint was relocated and irrigated. The subscapularis was repaired to the previously placed sutures. The deltopectoral interval was reapproximated with 0 Vicryl. The upper portion of the lateral flap of the wound was elevated to allow access to the cyst overlying the acromioclavicular joint. The cyst was evacuated of thick gelatinous fluid. The stalk was amputated. This area was then copiously irrigated. Subcutaneous layer was closed with interrupted 3-0 Vicryl and skin with a running 3 0 V lock suture and Dermabond. Subcutaneous tissues were then infiltrated with 0.5% Marcaine for postoperative pain control. ?An Aquacel Ag dressing was applied and the patient's arm was placed in a sling. The patient was then transferred to the recovery room in good condition having tolerated the procedure well. A skilled surgical lead was required during this case for exposure, positioning of the arm and for retraction to protect vital structures. Without the services of Angela Debbie, the procedure could not have proceeded in a safe, expedient fashion. Complications: none Post-operative Condition: stable Disposition: PACU Plan for aftercare: The patient will be allowed to use her hand in front of her body below shoulder level to lift 1-2 lb. She will be allowed to do pendulum exercises. Formal phy sical therapy will begin at 6 weeks if it is necessary. She will likely be in the hospital overnight for pain control and discharge tomorrow although we will check on her later this evening and send her home if she is feeling well enough.
--- NOTE | 2022-08-26 12:44 | SUR.PHASEI ---
Report called to SERGIO Becker
--- NOTE | 2022-08-26 13:06 | SUR.PHASEI ---
Patient transferred to the floor with her belongings bag. Report given to Rosita. VS stable. Shoulder dressing CDI, brace in place. IV patent.
[2022-08-26] MEDS: ACETAMINOPHEN 325 MG TABLET 650 MG PO (14:16)
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
--- NOTE | 2022-08-26 17:25 | PC.NURSE ---
Pt is dressed ready for dc home with spouse. IV removed. Went over dc instructions with pt, discussed dc meds, last dose, reviewed stroke education, s/s of infection, showering, keeping arm in sling except when showering. Reminded pt not to exceed 3000 mg of Tylenol in 24 [address] while taking narcotics and until cleared by MD. Encouraged pt to drink plenty of fluids to prevent dehydration and constipation. pt denied further questions and was taken out via wc by RN to pov with spouse and all belongings.
== END 2022-08-26 17:10 | disposition home or self-care (01) | DRG 483 ==
PROVIDERS: Admitting Provider Orthopaedic Surgery; PCP Family Medicine; Referring Provider Orthopaedic Surgery; Visit Provider Orthopaedic Surgery
PROC: 0RRJ00Z Replacement of Right Shoulder Joint with Reverse Ball and Socket Synthetic Substitute, Open Approach (ICD-10-PCS; CPT 23472; principal; 2022-08-26 10:00)
DX: M75.121 Complete rotator cuff tear or rupture of right shoulder, not specified as traumatic (principal); M19.011 Primary osteoarthritis, right shoulder; M67.411 Ganglion, right shoulder; Z20.822 Contact with and (suspected) exposure to COVID-19
CPT/HCPCS: 64450; 73020; 87635; 97161; C1776; C9803; J0171; J0330; J0690; J1100; J2405; J3010

== ENCOUNTER → 2022-10-07 13:06 | Outpatient (CLI) | payer MEDICARE, OTHER, SELFPAY ==
[2022-08-26 14:17] VITALS: BMI 17.9
--- NOTE | 2022-10-07 13:14 | DI.DEXA.S_ITS ---
Bone Density Report Name: OSCAR MATHIS Age: 67 Sex: Female Ethnicity: White Date of : 1955 Indication: osteopenia; Referring Provider: PIPE FIELDS Study: Bone densitometry was performed. Exam Date: October 07, 2022 Accession number: [id number] Bone Density: Region BMD T-score Z-score Classification AP Spine(L1-L4) 1.205 1.4 3.3 Normal Femoral Neck (Left) 0.671 -1.6 0.0 Osteopenia Total Hip (Left) 0.711 -1.9 -0.6 Osteopenia Femoral Neck (Right) 0.625 -2.0 -0.4 Osteopenia Total Hip (Right) 0.711 -1.9 -0.6 Osteopenia Total Hip Mean 0.711 -1.9 -0.6 Osteopenia World Health Organization criteria for BMD impression classify patients as: Normal (T-score at or above -1.0), Osteopenia (T-score between -1.0 and -2.5), or Osteoporosis (T-score at or below -2.5). 10-year Fracture Risk(1): Major Osteoporotic Fracture 9.1% Hip Fracture 1.5% Reported Risk Factors: [place] (), Neck BMD=0.625, BMI=19.0 (1) FRAX(R) Version 3.08. Fracture probability calculated for an untreated patient. Fracture probability may be lower if the patient has received treatment. Previous Exams: -- Region Exam Age BMD T-score BMD Change BMD Change Date g/cm2 vs Baseline vs Previous -- AP Spine (L1-L4) 10/07/2022 67 1.205 1.4 -0.051 (-4.1%)# -0.051 (-4.1%)# 06/18/2020 65 1.256 1.9 Total Hip(Left) 10/07/2022 67 0.711 -1.9 -0.021 (-2.9%)# -0.021 (-2.9%)# 06/18/2020 65 0.732 -1.7 Total Hip(Right) 10/07/2022 67 0.711 -1.9 0.005 (0.7%)# 0.005 (0.7%)# 06/18/2020 65 0.706 -1.9 -- *Denotes significance at 95% confidence level, LSC for AP Spine = 0.022 g/cm2, LSC for Total Hip = 0.027 g/cm2 # Denotes dissimilar scan types or analysis methods Impression: The patient has low bone mass, based on the Right Femoral Neck T-score. The patient has an estimated ten-year risk of hip fracture of 1.5% and an estimated ten-year risk of major fracture of 9.1%, based on the WHO FRAX algorithm. No significant bone loss was observed. Discussion: BONE DENSITY IS LOW AT ONE OR MORE SKELETAL SITES. This patient's lowest T-score is low at one or more skeletal sites. It meets the World Health Organization's (WHO) criteria for ?low bone mass? (T-score between -1.0 and -2.5). The patient's 10-year risk of fracture as calculated by FRAX is less than the threshold where pharmacological therapy is recommended by the National Osteoporosis Foundation (NOF). However, all treatment decisions require clinical judgment and consideration of individual patient factors, including patient preferences, comorbidities, previous drug use, risk factors not captured in the FRAX model (e.g., frailty, falls, vitamin D deficiency, increased bone turnover, interval significant decline in bone density) and possible under or overestimation of fracture risk by FRAX. The patient should follow a healthful lifestyle (good nutrition with adequate calcium and vitamin D, and appropriate weight-bearing exercise). Follow-Up: Consider repeating this study in 2 to 3 years to reassess this patient's status, or sooner if there is some new clinical indication. Reported by: DAVE BROWN MD on 10/07/2022 1:22:00 PM.
== END ==
PROVIDERS: PCP Family Medicine; Referring Provider Family Medicine; Visit Provider Family Medicine
DX: Z78.0 Asymptomatic menopausal state (principal); M85.851 Other specified disorders of bone density and structure, right thigh
CPT/HCPCS: 77080

== ENCOUNTER → 2022-11-17 10:15 | Outpatient (CLI) | payer MEDICARE, OTHER, SELFPAY ==
[2022-08-26 14:17] VITALS: BMI 17.9
--- NOTE | 2022-11-17 | DI.RAD.S_ITS ---
PROCEDURE: XR THORACIC SPINE 3V INDICATIONS: Radiculopathy, lumbar region TECHNIQUE: 3 views of the thoracic spine were acquired. COMPARISON: None. FINDINGS: Bones: Mild rightward curvature of thoracic spine with apex at T9 level is seen with compensatory xuhp-tf-vtveuklv levoscoliosis of lumbar spine with apex at L1 level. No fractures or dislocations. No suspicious bony lesions. Degenerative endplate changes are noted throughout thoracic spine. 12 pairs of ribs are noted, and appear intact where visualized. Soft tissues: No paravertebral stripe thickening. IMPRESSION: No acute compression fracture or spondylolisthesis in thoracic spine. Degenerative disc disease throughout thoracic spine with S-shaped scoliosis as above. Dictated by: Lan Khan M.D. on 11/17/2022 at 12:41 Approved by: Lan Khan M.D. on 11/17/2022 at 12:43
--- NOTE | 2022-11-17 | DI.RAD.S_ITS ---
PROCEDURE: XR LUMBAR SPINE MIN 4V INDICATIONS: Radiculopathy, lumbar region TECHNIQUE: 5 views of the lumbar spine were acquired, including bilateral oblique views. COMPARISON: None. FINDINGS: Bones: 5 nonrib-bearing vertebrae are present. There is grrd-lb-wqrurldr levoscoliosis of lumbar spine with apex at L1 level. Degenerative endplate changes, loss of disc height and bilateral facet arthrosis throughout lumbar spine is seen.. No vertebral body compression fractures. No suspicious bony lesions. Soft tissues: Overlying bowel gas pattern is normal. No suspicious soft tissue calcifications. Oblique images: No pars defects. IMPRESSION: Degenerative disc disease throughout lumbar spine. No acute compression fracture or spondylolisthesis. Ocvq-ph-pqpwfbgd levoscoliosis as above. No gross pars defects. Dictated by: Lan Khan M.D. on 11/17/2022 at 12:44 Approved by: Lan Khan M.D. on 11/17/2022 at 12:45
== END ==
PROVIDERS: PCP Family Medicine; Referring Provider Family Medicine; Visit Provider Family Medicine
DX: M51.16 Intervertebral disc disorders with radiculopathy, lumbar region (principal); M51.34 Other intervertebral disc degeneration, thoracic region; M41.9 Scoliosis, unspecified
CPT/HCPCS: 72072; 72110

== ENCOUNTER → 2023-03-02 12:10 | Outpatient (CLI) | payer MEDICARE, OTHER, SELFPAY ==
[2022-08-26 14:17] VITALS: BMI 17.9
--- NOTE | 2023-03-02 | DI.RAD.S_ITS ---
PROCEDURE: XR LUMBAR SPINE 2-3V INDICATIONS: HIP PAIN TECHNIQUE: 3 views of the lumbar spine were acquired. COMPARISON: None. FINDINGS: Bones: 5 bgd-txp-hywfgoy vertebrae are present. There is mild, approximately 6 millimeters of L1-L2 and 3 millimeters of L4-L5 retrolisthesis. Convex left scoliosis. No vertebral body compression fractures. No suspicious bony lesions. Moderate degenerative disc changes noted throughout the lumbar spine. Mild L3-L4, L4-L5 and L5-S1 facet arthropathy. Soft tissues: Overlying bowel gas pattern is normal. No suspicious soft tissue calcifications. IMPRESSION: 1. Multilevel degenerative disc disease. 2. Multilevel facet arthropathy. 3. No fracture. No acute osseous lesion. If symptoms and/or clinical suspicion for pathology persists, evaluation with MRI should be considered for further assessment. 4. Convex left scoliosis. Dictated by: Becky Neil MD, PhD on 03/02/2023 at 13:04 Approved by: Becky Neil MD, PhD on 03/02/2023 at 13:08
--- NOTE | 2023-03-02 | DI.RAD.S_ITS ---
PROCEDURE: XR HIP W PEL IF DONE LT 2V INDICATIONS: HIP PAIN TECHNIQUE: AP pelvis with lateral view(s) of the left hip(s). COMPARISON: None. FINDINGS: Bones: No fractures or dislocations. Pelvic ring appears intact. No suspicious bony lesions. Moderate left hip osteoarthritis with osseous hypertrophy and mild joint space narrowing. Mild right hip osteoarthritis. Lower lumbar spine degenerative disc disease and facet arthropathy Soft tissues: The visualized bowel gas pattern is normal. No suspicious soft tissue calcifications. IMPRESSION: Moderate left hip osteoarthritis. Dictated by: Becky Neil MD, PhD on 03/02/2023 at 13:04 Approved by: Becky Neil MD, PhD on 03/02/2023 at 13:04
== END ==
PROVIDERS: PCP Family Medicine; Referring Provider Family Medicine; Visit Provider Family Medicine
DX: M16.12 Unilateral primary osteoarthritis, left hip (principal); M47.816 Spondylosis without myelopathy or radiculopathy, lumbar region; M47.817 Spondylosis without myelopathy or radiculopathy, lumbosacral region; M41.9 Scoliosis, unspecified; M51.36 Other intervertebral disc degeneration, lumbar region; M25.552 Pain in left hip; M54.50 Low back pain, unspecified; G89.29 Other chronic pain
CPT/HCPCS: 72100; 73502

== ENCOUNTER → 2023-06-22 15:15 | Outpatient (CLI) | payer MEDICARE, OTHER, SELFPAY ==
[2022-08-26 14:17] VITALS: BMI 17.9
--- NOTE | 2023-06-22 15:17 | DI.MG.S_ITS ---
BILATERAL DIGITAL SCREENING MAMMOGRAM 3D/2D WITH CAD: 06/22/2023 CLINICAL: Routine screening. Comparison is made to exams dated: 04/10/2022 mammogram, 01/23/2020 mammogram, and 03/14/2021 mammogram - . Both breasts are extremely dense, which lowers the sensitivity of mammography (category d />75% glandular tissue). Current study was also evaluated with a Computer Aided Detection (CAD) system. There are benign calcifications in both breasts. There also are benign post operative findings in the right breast. No significant masses, calcifications, or other findings are seen in either breast. There has been no significant interval change. IMPRESSION: BENIGN There is no mammographic evidence of malignancy. A 1 year screening mammogram is recommended. Based on the Tyrer Cuzick model (a risk assessment model) the patient's lifetime risk is 12.6% and her 10 year risk is 6.8%. According to the ACR, ACS, and NCCN guidelines, an annual breast MRI exam along with mammogram is recommended if the patient's lifetime risk is 20% or greater. This exam was interpreted at Station ID: [id number]. NOTE: For mammograms, a report in lay terms will be sent to the patient. Approximately 15% of breast malignancies will not be visualized mammographically. In the management of a palpable breast mass, a negative mammogram must not discourage biopsy of a clinically suspicious lesion. Electronically Signed By: John vee/yuriy:06/23/2023 11:45:02 letter sent: Normal Exam ACR BI-RADS Category 2: Benign Finding(s) 3342F
== END ==
LOC: MAMMO 15:15
PROVIDERS: PCP Family Medicine; Referring Provider Family Medicine; Visit Provider Family Medicine
DX: Z12.31 Encounter for screening mammogram for malignant neoplasm of breast (principal); R92.343 Mammographic extreme density, bilateral breasts
CPT/HCPCS: 77063; 77067

== ENCOUNTER → 2023-07-14 18:42 | Outpatient (CLI) | payer MEDICARE, OTHER, SELFPAY ==
[2022-08-26 14:17] VITALS: BMI 17.9
--- NOTE | 2023-07-14 | DI.MRI.S_ITS ---
PROCEDURE: MR STROKE Pre- and post-contrast brain MRI, non-contrast brain MR angiogram, pre- and postcontrast neck MR angiogram INDICATIONS: Right arm weakness,parathesia of skin, headache TECHNIQUE: Brain: Noncontrast axial T1 spin echo, axial T2 fast spin echo, sagittal and axial FLAIR, coronal T2 fast spin echo, axial gradient echo, axial diffusion and ADC through the brain. After the administration of contrast, axial 3D VIBE of the cranial vasculature and brain. Brain MRA: Non-contrast 3-D time of flight MR angiogram, with multiple mlgqgbo-manhysusi-cjueqplslm (MIP) reformats performed. Neck MRA: Axial and sagittal TruFISP through the neck. Coronal dynamic MR angiogram during administration of contrast in the arterial and venous phases, with 3-dimenstional sglssuy-ndmjmysqq-hgnvchtqdy (MIP) reformats constructed from subtraction images. COMPARISON: None. FINDINGS: Image quality: Excellent. BRAIN: CSF spaces: Ventricles are normal in size and shape. Basal cisterns are patent. No extra-axial fluid collections. Brain: No intracranial bleeds or mass effects. [place]oyos-white matter interface is normal. Diffusion weighted images show no acute infarct. Brainstem appears normal. Normal intravascular flow voids are present. No abnormal intracranial enhancement. Skull and face: Calvarial marrow signal is normal. Orbits appear normal. Sinuses: Sinuses and mastoids are clear. BRAIN MR ANGIOGRAM: Anterior circulation: Intracranial internal carotid arteries are normal in size and enhancement. The flow within the paired anterior cerebral arteries is normal and symmetric. The flow within the middle cerebral arteries is normal and symmetric. The anterior communicating artery is seen. No stenoses, occlusions, or aneurysms. Posterior circulation: The visualized portions of the vertebral arteries demonstrate normal caliber, and join to form a normal appearing basilar artery. The flow within the posterior cerebral arteries is normal and symmetric. No stenoses, occlusions, or aneurysms. NECK MR ANGIOGRAM: Carotids: Great vessels demonstrate a conventional anatomy as they arise from the aortic arch. The origins of the common carotid arteries appear patent. The calibers and courses of both common carotid arteries are normal. The bifurcation regions appear normal bilaterally. The internal carotid arteries demonstrate normal course and caliber. Posterior circulation: The origins of the vertebral arteries appear patent. More superior portions of both vertebral arteries demonstrate normal course and caliber. The left vertebral artery is dominant to the right. Miscellaneous: Subclavian arteries appear patent. Pre-contrast images through the neck show no soft tissue abnormalities. IMPRESSION: BRAIN MRI: No significant brain abnormality is seen for age. No masses or abnormal enhancement can be seen. No findings of acute or subacute infarction can be seen. BRAIN MR ANGIOGRAM: No significant intracranial arterial abnormality is seen. NECK MR ANGIOGRAM: Within the arteries of the neck, no hemodynamically significant stenosis can be seen. Dictated by: Chandu Olivarez M.D. on 07/14/2023 at 18:37 Approved by: Chandu Olivarez M.D. on 07/14/2023 at 18:39
== END ==
LOC: MRI 18:44
PROVIDERS: PCP Family Medicine; Referring Provider Family Medicine; Visit Provider Family Medicine
DX: R51.9 Headache, unspecified (principal); R29.898 Other symptoms and signs involving the musculoskeletal system; R20.2 Paresthesia of skin
CPT/HCPCS: 70548; 70553; A9579

== ENCOUNTER → 2023-08-25 09:27 | Outpatient (CLI) | payer MEDICARE, OTHER, SELFPAY ==
[2022-08-26 14:17] VITALS: BMI 17.9
== END ==
PROVIDERS: PCP Family Medicine; Visit Provider Obstetrics & Gynecology
DX: R32 Unspecified urinary incontinence (principal)
CPT/HCPCS: 87086

== ENCOUNTER → 2023-09-18 15:16 | Outpatient (CLI) | payer MEDICARE, OTHER, SELFPAY ==
[2022-08-26 14:17] VITALS: BMI 17.9
--- NOTE | 2023-09-18 | DI.MRI.S_ITS ---
PROCEDURE: MR KNEE LT WO CON INDICATIONS: Pain in left knee TECHNIQUE: Noncontrast sagittal PD fast spin echo and T2 fast spin echo with fat saturation, sagittal 3-D FLASH with fat saturation; coronal T1 spin echo and PD fast spin echo with fat saturation, and axial PD fast spin echo with fat saturation through the knee. COMPARISON: None. FINDINGS: Image quality: Excellent. Menisci: Peripheral displacement of medial meniscus bowing medial collateral ligament is seen. Oblique tear involving posterior horn of medial meniscus extending to inferior articulating surface is noted. The lateral meniscus is intact. The meniscal root ligaments appear intact. Cruciate ligaments: The anterior and posterior cruciate ligaments appear intact. Medial structures: The medial collateral ligament appears intact. Visualized portions of the pes anserinus tendons appear normal. No abnormal bursal fluid. Lateral structures: The lateral collateral ligament, long and short heads of the biceps femoris tendon appear thickened with intrasubstance T2 hyperintense signal. The popliteus tendon appears normal. Iliotibial band appears normal. Anterior structures: The quadriceps and patellar tendons appear intact. Patellar alignment is normal. No femoral trochlear dysplasia or ventral trochlear prominence. No edema in the infrapatellar fat pad. Bones and cartilage: Extensive marrow edema involving lateral portion of proximal tibia extending to lateral tibial plateau is seen with subtle linear hypointense signal involving lateral periphery of lateral tibial plateau weight-bearing portion concerning for insufficiency fracture in this area. Mild to moderate tricompartmental osteoarthritis and chondromalacia is seen more notably in medial femoral tibial compartment. No other area of abnormal marrow signal. No displaced fracture is seen. Joint space: There is moderate knee joint fluid. There is a tiny Barnett's cyst. Normal appearing synovial plicae are incidentally noted. IMPRESSION: 1. Finding is suggestive of insufficiency fracture involving weight-bearing portion of lateral tibial plateau with extensive surrounding marrow edema. No other fracture or dislocation is seen. 2. Lhql-xf-gtriwzaq tricompartmental osteoarthritis and chondromalacia more notably in medial femoral tibial compartment. Moderate joint effusion, no gross loose bodies. Tiny Barnett's cyst. 3. Oblique tear involving posterior horn of medial meniscus extending to inferior articulating surface. The lateral meniscus is intact. 4. The cruciate ligaments are intact. Low-grade sprain/partial-thickness tear involving lateral collateral ligament near its femoral insertion. Distal biceps femorals tendinosis. Dictated by: Lan Khan M.D. on 09/20/2023 at 10:02 Approved by: Lan Khan M.D. on 09/20/2023 at 10:07
== END ==
LOC: MRI 15:16
PROVIDERS: PCP Family Medicine; Referring Provider Family Medicine; Visit Provider Family Medicine
DX: S83.242A Other tear of medial meniscus, current injury, left knee, initial encounter (principal); S83.422A Sprain of lateral collateral ligament of left knee, initial encounter; M17.12 Unilateral primary osteoarthritis, left knee; M94.262 Chondromalacia, left knee; M25.562 Pain in left knee; M25.462 Effusion, left knee
CPT/HCPCS: 73721

== ENCOUNTER → 2024-01-07 09:13 | Outpatient (CLI) | payer MEDICARE, OTHER, SELFPAY ==
[2022-08-26 14:17] VITALS: BMI 17.9
--- NOTE | 2024-01-07 | DI.CT.S_ITS ---
PROCEDURE: CT CHEST ABD PEL W CON INDICATIONS: NAUSEA, ABNORMAL WEIGHT LOSS TECHNIQUE: After the administration of intravenous contrast, 5 mm thick sections acquired from the lung apices to the symphysis. 5 mm coronal and sagittal reformats were performed, with additional 7 mm MIP reformats through the lungs. For radiation dose reduction, the following was used: automated exposure control, adjustment of mA and/or kV according to patient size. COMPARISON: None. FINDINGS: Image quality: Excellent. CHEST: Lower Neck: No enlarged lymph nodes. Thyroid: No thyroid nodules which require sonographic follow up, per consensus guidelines. Axillae: No enlarged lymph nodes. Chest Wall: Unremarkable. Lungs and Pleura: No pneumothorax or pleural effusions. No consolidation or suspicious nodules. Large lung volumes, suspect possible COPD. Heart: Heart size is normal. No pericardial effusion. Thoracic Vessels: The aorta and pulmonary arteries demonstrate normal size. Mediastinum and Mamta: No enlarged lymph nodes. Esophagus: No wall thickening. No hiatal hernia. ABDOMEN: Liver: No solid mass. Gallbladder: No radiopaque gallstones or wall thickening. Biliary ducts: No biliary dilation. Pancreas: No ductal dilation. Spleen: Size is within normal limits. Adrenal Glands: No adrenal nodules. Kidneys and Ureters: No hydronephrosis. No solid mass. No complex renal cystic lesion which requires follow up. Simple 2 cm anterior mid kidney right renal cyst. Stomach and Bowel: Normal colonic caliber, without significant wall thickening. Peritoneum: No abnormal intraperitoneal fluid. No free air. Ventral Wall: No significant ventral hernia. Abdominal Nodes: No retroperitoneal or mesenteric adenopathy by size criteria. Vessels: Aorta and inferior vena cava are normal in size. PELVIS: Pelvic Organs: Unremarkable. Bladder: No bladder wall thickening, accounting for underdistention. Pelvic Nodes: No enlarged lymph nodes. Miscellaneous: No inguinal hernias are seen. Bones: No aggressive osseous abnormality. 1 IMPRESSION: Suspect COPD, no infection or underlying neoplasm. Dictated by: Prashant Oneill M.D. on 01/07/2024 at 14:37 Approved by: Prashant Oneill M.D. on 01/07/2024 at 14:39
== END ==
PROVIDERS: PCP Family Medicine; Referring Provider Family Medicine; Visit Provider Family Medicine
DX: N28.1 Cyst of kidney, acquired (principal); R63.4 Abnormal weight loss; R11.0 Nausea
CPT/HCPCS: 71260; 74177; Q9967

== ENCOUNTER 2024-03-15 10:41 | Emergency (ER) | payer MEDICARE, OTHER, SELFPAY ==
[2022-08-26 14:17] VITALS: BMI 17.9
[2024-03-15 10:45] VITALS: BP 147/67; PULSE 69; RESP 18; TEMP 36.4; O2SAT 99; BMI 19.0
--- NOTE | 2024-03-15 10:50 | DI.RAD.S_ITS ---
PROCEDURE: XR KNEE RT 3V INDICATIONS: fall, swelling and pain TECHNIQUE: 3 views of the knee were acquired. COMPARISON: [facility], CR, XR KNEE RT 3V, 11/20/2019, 11:52. FINDINGS: Bones: No fractures or dislocations. No suspicious bony lesions. Soft tissues: Large joint effusion. No suspicious soft tissue calcifications. IMPRESSION: No displaced fracture. Large joint effusion. Internal derangement or occult fracture are considerations. Consider cross-sectional evaluation. Dictated by: Morgan Flores M.D. on 03/15/2024 at 11:28 Approved by: Morgan Flores M.D. on 03/15/2024 at 11:29
--- NOTE | 2024-03-15 10:51 | DI.RAD.S_ITS ---
PROCEDURE: XR HAND RT MIN 3V INDICATIONS: fall, pain, limited ROM TECHNIQUE: 3 views of the hand(s) acquired. COMPARISON: None. FINDINGS: Bones: Intra-articular fracture at the base of the 5th proximal phalanx. Slight apex volar angulation. Soft tissues: No suspicious soft tissue calcifications. IMPRESSION: Intra-articular fracture at the base of the 5th proximal phalanx. Dictated by: Morgan Flores M.D. on 03/15/2024 at 11:25 Approved by: Morgan Flores M.D. on 03/15/2024 at 11:26
--- NOTE | 2024-03-15 10:51 | DI.RAD.S_ITS ---
PROCEDURE: XR SHOULDER RT MIN 2V INDICATIONS: fall, pain, limited ROM TECHNIQUE: 3 views of the shoulder were acquired. COMPARISON: [facility], CR, XR SHOULDER RT 1V, 08/26/2022, 12:17. [facility], CR, XR SHOULDER RT MIN 2V, 07/15/2020, 10:05. FINDINGS: Bones: No fractures or dislocations. No suspicious bony lesions. Visualized ribs appear intact. Well-aligned, intact right shoulder arthroplasty without hardware complication. Soft tissues: No suspicious soft tissue calcifications. IMPRESSION: No acute bony abnormality. Dictated by: Morgan Flores M.D. on 03/15/2024 at 11:27 Approved by: Morgna Flores M.D. on 03/15/2024 at 11:28
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
[2024-03-15 12:17] VITALS: BP 159/77; PULSE 78; RESP 17; O2SAT 99
== END 2024-03-15 12:17 | disposition home or self-care (01) ==
PROVIDERS: Emergency Provider Physician Assistant; PCP Family Medicine
DX: S62.616A Displaced fracture of proximal phalanx of right little finger, initial encounter for closed fracture (principal); S80.01XA Contusion of right knee, initial encounter; S00.81XA Abrasion of other part of head, initial encounter; M25.511 Pain in right shoulder; W01.0XXA Fall on same level from slipping, tripping and stumbling without subsequent striking against object, initial encounter
CPT/HCPCS: 29125; 73030; 73130; 73562; 99283; 99284

== ENCOUNTER → 2024-04-19 12:44 | Outpatient (CLI) | payer MEDICARE, OTHER, SELFPAY ==
[2022-08-26 14:17] VITALS: BMI 17.9
[2024-04-19 13:55] LABS: Add Manual Diff / Slide Review NO; Basophils Absolute Auto 100 /uL (0-100); Basophils Percent Auto 1.1 % (0-2); Eosinophils Absolute Auto 100 /uL (0-450); Eosinophils Percent Auto 2.1 % (2-4); Hematocrit 43.3 % (36-46); Hemoglobin 14.4 g/dL (12.0-16.0); Lymphocytes Absolute Auto 1300 /uL (1100-4500); Lymphocytes Percent Auto 25.9 % (25-40); Mean Corpuscular HGB Conc 33.2 % (30-36); Mean Corpuscular Hemoglobin 31.8 PG (26-34); Mean Corpuscular Volume 95.9 fL (80-100); Monocytes Absolute Auto 500 /uL (0-900); Monocytes Percent Auto 8.9 % (3-14); Neutrophils Absolute Auto 3200 /uL (1500-7000); Platelet Count 281 X10^3/uL (150-400); Red Blood Cell Count 4.51 X10^6/uL (4.0-5.2); Red Cell Distribution Width 14.2 % (11.6-14.8); White Blood Cell Count 5.1 X10^3/uL (4.5-11.0)
[2024-04-19 14:37] LABS: Alanine Aminotransferase 16 IU/L (<35); Albumin 4.1 g/dL (3.5-5.0); Albumin Globulin Ratio 1.6 (1.0-2.8); Alkaline Phosphatase 55 U/L (38-126); Aspartate Aminotransferase 26 IU/L (14-36); BUN Creatinine Ratio 16.2 (6-22); Bilirubin Total 0.4 mg/dL (0.2-1.3); Blood Urea Nitrogen 17 mg/dL (7-17); Calcium 9.2 mg/dL (8.4-10.2); Carbon Dioxide 30 mmol/L (22-32); Chloride 105 mmol/L (98-107); Estimated Glomerular Filt Rate 58 mL/min (>60); Globulin 2.6 g/dL (1.7-4.1); Glucose 79 mg/dL (80-110); HEMOLYSIS < 15 (0-50); Magnesium 2.1 mg/dL (1.6-2.3); Potassium 4.4 mmol/L (3.4-5.1); Sodium 138 mmol/L (137-145); Total Protein 6.7 g/dL (6.3-8.2)
[2024-04-19 15:05] LABS: Thyroid Stimulating Hormone 1.72 uIU/mL (0.47-4.68)
[2024-04-19 15:41] LABS: Folate 10.7 ng/mL (2.76-20.0); Vitamin B12 287 pg/mL (239-931)
== END ==
LOC: LAB 12:46
PROVIDERS: PCP Family Medicine; Referring Provider Family Medicine; Visit Provider Family Medicine
DX: Z00.00 Encounter for general adult medical examination without abnormal findings (principal); R05.3 Chronic cough; R63.4 Abnormal weight loss; Z13.29 Encounter for screening for other suspected endocrine disorder; M79.7 Fibromyalgia; F51.01 Primary insomnia; D70.9 Neutropenia, unspecified; F41.8 Other specified anxiety disorders; E78.00 Pure hypercholesterolemia, unspecified; M85.852 Other specified disorders of bone density and structure, left thigh; E53.8 Deficiency of other specified B group vitamins; M25.561 Pain in right knee; I49.8 Other specified cardiac arrhythmias; R00.1 Bradycardia, unspecified; F32.1 Major depressive disorder, single episode, moderate; F41.9 Anxiety disorder, unspecified
CPT/HCPCS: 36415; 80053; 82607; 82746; 83735; 84443; 85025

== ENCOUNTER → 2024-05-15 12:32 | Outpatient (CLI) | payer MEDICARE, OTHER, SELFPAY ==
[2022-08-26 14:17] VITALS: BMI 17.9
--- NOTE | 2024-05-15 12:54 | DI.ECHO.S_ITS ---
[facility] : : [address] : : [place] : : [id number] : : Phone: [phone] Echocardiogram Report + + :Name: OSCAR MATHIS Study Date: 05/15/2024 Height: 68.5 in: :[facility] ReadingLocation: Weight: 120 lb : : Gender: Female BSA: 1.7 m2 : :: 1955 Age: 68 yrs BP: 144/74 mmHg: :Reason For Study: BRADYCARDIA : :Ordering Physician: DIAMOND, : :PIPE Performed By: Rosita Cosby : :Referring: PIPE FIELDS : + + Interpretation Summary Normal left ventricle size with ejection fraction 55-60%. No significant valvular abnormality. Procedure: A two-dimensional transthoracic echocardiogram with color flow and Doppler was performed. The study quality was technically adequate. There is no prior echocardiogram noted for this patient. The patient was in sinus bradycardia with heart rates between 58-92 bpm during the exam. Left Ventricle: The left ventricle is normal in size and wall thickness. The ejection fraction is estimated to be 55-60%. There are no focal wall motion abnormalities. Diastolic parameters suggest probable normal left ventricular diastolic function and normal filling pressures. Right Ventricle: The right ventricle is normal in size and function. Atria: The left atrial size is normal. A prominent eustachian valve is noted. Right atrial size is normal. There is no Doppler evidence for an interatrial shunt. Mitral Valve: The mitral valve leaflets appear to open well. There is trace mitral regurgitation. Aortic Valve: The aortic valve is trileaflet. The aortic valve opens well. There is no aortic valve stenosis. No aortic regurgitation is present. Tricuspid Valve: The tricuspid valve leaflets are thin and pliable. There is trace tricuspid regurgitation. The right ventricular systolic pressure is estimated to be at least 19 mmHg based on an estimated right atrial pressure of 3 mm Hg. Pulmonic Valve: The pulmonic valve leaflets are thin and pliable; valve motion is normal. There is no pulmonic valvular regurgitation. Great Vessels: The aortic root is normal size. The dimensions of the ascending aorta are normal. The IVC is of normal diameter and collapses greater than 50% with a sniff. This suggests a low right atrial pressure of 3 mm Hg. Pericardium/ Pleura There is no pericardial effusion. There is no pleural effusion. MMode/2D Measurements & Calculations LVIDd: 4.7 cm LVOT diam: 2.1 cm LVIDs: 2.9 cm Ao root diam: 3.2 cm FS: 37.9 % asc Aorta Diam: 3.4 cm EPSS: 0.77 cm Ao Arch Diam (Prox Trans): 2.4 cm IVSd: 0.88 cm LVPWd: 0.73 cm LV thomas. diameter/BSA (cm/m^2): 2.8 LV sys. diameter/BSA (cm/m^2): 1.8 LA A2 area: 17.0 cm2 RA long axis: 3.9 cm LA A4 area: 12.0 cm2 RA area: 12.4 cm2 LA length (vol): 3.4 cm RA vol: 33.2 ml LA vol: 50.8 ml RA : 20.0 ml/m2 LA vol index: 30.7 ml/m2 IVC diam: 1.3 cm RVD1 (basal): 3.6 cm TAPSE: 2.5 cm Doppler Measurements & Calculations Ao V2 max: 114.9 cm/sec LVOT Max Kevin: 91.1 cm/sec Ao V2 mean: 79.6 cm/sec LV V1 max P.3 mmHg Ao max P.3 mmHg LV V1 VTI: 19.1 cm Ao mean P.8 mmHg ESTEFANI(I,D): 2.9 cm2 Ao V2 VTI: 22.7 cm ESTEFANI(V,D): 2.7 cm2 sev ratio: 0.84 ESTEFANI indexed to BSA (cm^2/m^2): 1.7 MV E max kevin: 68.3 cm/sec TR max kevin: 202.5 cm/sec MV A max kevin: 69.5 cm/sec TR max P.4 mmHg MV E/A: 0.98 PA V2 max: 67.4 cm/sec Med Peak E' Kevin: 8.2 cm/sec PA V2 mean: 43.9 cm/sec E/E' med: 8.4 PA mean P.90 mmHg Lat Peak E' Kevin: 7.4 cm/sec PA pr(Accel): 29.3 mmHg E/E' lat: 9.3 E/e' average: 8.8 MV dec time: 0.16 sec [facility]): 65.1 ml Electronically signed by: Gonsalo Loera on Reading Physician:05/15/2024 02:30 PM
== END ==
LOC: ECHO 12:33
PROVIDERS: PCP Family Medicine; Referring Provider Family Medicine; Visit Provider Family Medicine
DX: I49.8 Other specified cardiac arrhythmias (principal); R00.1 Bradycardia, unspecified
CPT/HCPCS: 93306

== ENCOUNTER → 2024-06-22 07:45 | Outpatient (CLI) | payer MEDICARE, OTHER, SELFPAY ==
[2022-08-26 14:17] VITALS: BMI 17.9
--- NOTE | 2024-06-22 | DI.NM.S_ITS ---
PROCEDURE: NM EXERCISE TREADMILL NON NUC COMPARISON: None. INDICATIONS: BRADYCARDIA FINDINGS: Patient exercised per the standard Benji protocol. Total exercise time was 6 minutes and 11 seconds. Test was terminated secondary to fatigue. Maximal heart rate obtained is 115 bpm which is 76% of max impacted heart rate. Maximum blood pressure was 164/82[place] [address]. LUDY -3%. 7.[address] depressions noted in the inferior leads starting at 2 minutes and 50 seconds into the stress phase. ST depressions persisted until 3 minutes and 0 seconds into the recovery phase. No arrhythmias noted during the stress phase. Frequent PVCs in a bigeminal fashion present at the 3-minute min in the recovery phase and lasted for 7 seconds. No ventricular arrhythmias noted. No chest pains voiced. Blunted heart rate with normal blood pressure response to exercise. IMPRESSION: 1. Nondiagnostic exercise treadmill stress test for ischemia due to inability to reach target heart rate. 2. Findings are suggestive of chronotropic incompetency due to inability to reach target heart rate despite average exercise tolerance. Dictated by: Ramez Khan M.D. on 06/22/2024 at 16:21 Approved by: Ramez Khan M.D. on 06/22/2024 at 16:26
== END ==
PROVIDERS: PCP Family Medicine; Referring Provider Family Medicine; Visit Provider Family Medicine
DX: R00.1 Bradycardia, unspecified (principal); I49.8 Other specified cardiac arrhythmias
CPT/HCPCS: 93017

== ENCOUNTER → 2024-06-26 09:46 | Outpatient (CLI) | payer MEDICARE, OTHER, SELFPAY ==
[2022-08-26 14:17] VITALS: BMI 17.9
== END ==
PROVIDERS: PCP Family Medicine; Referring Provider Family Medicine; Visit Provider Family Medicine
DX: R06.02 Shortness of breath (principal); Z87.891 Personal history of nicotine dependence; J98.8 Other specified respiratory disorders; R94.2 Abnormal results of pulmonary function studies
CPT/HCPCS: 94010; 94726; 94729

== ENCOUNTER → 2024-07-20 09:38 | Outpatient (CLI) | payer MEDICARE, OTHER, SELFPAY ==
[2022-08-26 14:17] VITALS: BMI 17.9
--- NOTE | 2024-07-20 09:40 | DI.NM.S_ITS ---
PROCEDURE: NM YASMANY PERF SPECT R&S PHARM Rest and pharmacological stress myocardial perfusion SPECT with gated imaging and ejection fraction RADIOPHARMACEUTICAL: 24.4mCi Tc-99m tetrafosmin IV at rest and 10.9mCi Tc-99m tetrafosmin IV at peak effect of pharmacological stress. [id number] was performed. INDICATIONS: ABNORMAL STRESS TEST TECHNIQUE: Radiopharmaceutical was injected at peak stress test, and also at rest. SPECT images were obtained. SPECT myocardial perfusion images were displayed in short axis, horizontal long axis, and vertical long axis views. Gated images were reviewed using BitWave software. COMPARISON: None. CARDIAC STRESS: A pharmacologic stress test was performed under the supervision of an attending staff, using an infusion of lexiscan 0.4mg IV X1. Hemodynamic data: There is normal blood pressure and heart rate response to pharmacologic stress. Symptoms: The patient denied anginal chest pain. Aminophylline: none EKG: No diagnostic changes of ischemia; no ectopy. FINDINGS: Raw data: There is good myocardial uptake of radiotracer. No significant motion artifacts. Left ventricle function: Gated images demonstrate normal left ventricular wall thickening. No segmental wall motion abnormalities. No transient ischemic dilation; TID is 1.05 (normal less than 1.3). Left ventricle resting end diastolic volume is 93mL. Left ventricle stress ejection fraction is 72%; normal range is above 45%. Myocardial perfusion: Moderate intense apical defect at rest that improves slightly with stress and mostly resolves with prone imaging, suggesting artifact but old small infarct can't be excluded. No ischemia. SSS 1, SRS 5. IMPRESSION: Low risk, probably normal pharm nuclear stress test. 1) Moderate intense apical defect at rest that improves slightly with stress and mostly resolves with prone imaging, suggesting artifact but old small infarct can't be excluded. No ischemia. SSS 1, SRS 5. 2) Normal left ventricular size, wall motion, and systolic function (EF post stress 72%). 3) No angina during the study. 4) No diagnostic ST changes with lexiscan. 5) No prior nuclear stress test available for comparison. Dictated by: Donna Holliday MD on 07/21/2024 at 9:59 Approved by: Donna Holliday MD on 07/21/2024 at 10:02
== END ==
PROVIDERS: PCP Family Medicine; Referring Provider Internal Medicine; Visit Provider Internal Medicine
DX: R94.39 Abnormal result of other cardiovascular function study (principal)
CPT/HCPCS: 78452; 93017; A9502; J2785

== ENCOUNTER → 2024-09-12 12:48 | Outpatient (CLI) | payer MEDICARE, OTHER, SELFPAY ==
[2022-08-26 14:17] VITALS: BMI 17.9
--- NOTE | 2024-09-12 12:50 | DI.RAD.S_ITS ---
PROCEDURE: XR DEXA AXIAL SKELETON INDICATIONS: SCREENING COMPARISON: [facility], , XR DEXA AXIAL SKELETON, 10/07/2022, 13:14. [facility], CR, XR DEXA AXIAL SKELETON, 06/18/2020, 13:23. FINDINGS: Lumbar Spine: Bone mineral density 1.15 g/cm2, T score 1.2, previously 1.4. Left Femoral Neck: Bone mineral density 0.64 g/cm2, T score -1.9, previously -1.6. Left Hip: Bone mineral density 0.68 g/cm2, T score -2.1, previously -1.9. Fracture Risk Calculation (when applicable): 10-year fracture risk of a major osteoporotic fracture 15 percent and of a hip fracture 2.6 percent. (T score greater or equal to -1.0 to: NORMAL) (T score from -1.1 to -2.4: OSTEOPENIA) (T score less than or equal to -2.5: OSTEOPOROSIS) IMPRESSION: Osteopenia with fracture risks as above. Follow-up guidelines as follows: Osteoporosis: Consider a repeat DEXA and Vertebral Fracture Assessment (VFA) exam in 2 years or sooner if medically necessary, to reassess this patient's status. Osteopenia: Consider a repeat DEXA in 2-3 years to reassess this patient's status, or if there is a new clinical indication. Normal: Consider a repeat DEXA in 5 years or sooner, or if there is a new clinical indication. All treatment decisions require clinical judgment and consideration of individual patient factors, including patient preferences, comorbidities, previous drug use, risk factors not captured in the FRAX model (e.g., frailty, falls, vitamin D deficiency, increased bone turnover, interval significant decline in bone density ) and possible under- or over-estimation of fracture risk by FRAX. In addition, the NOF Guide recommends that FDA-approved medical therapies be considered in postmenopausal women and men age >= 50 years with a: * Hip or vertebral (clinical or morphometric) fracture * T-score of <=-2.5 at the spine or hip * Ten-year fracture probability by FRAX of >= 3% for hip fracture or >=20% for major osteoporotic fracture. Dictated by: Boris Mcginnis M.D. on 09/13/2024 at 10:59 Approved by: Boris Mcginnis M.D. on 09/13/2024 at 10:59
--- NOTE | 2024-09-12 12:50 | DI.MG.S_ITS ---
MM screening mammo BI: 09/12/2024. BI-RADS: 2 CLINICAL: 69-year old female for bilateral screening mammogram. Tyrer-Cuzick lifetime risk of 5.9%. No personal or first-degree family history of breast cancer. The patient had a prior right breast biopsy. PRIOR EXAMS 06/22/2023, 04/10/2022, 03/14/2021, 01/23/2020, 01/12/2019, 01/11/2018, 09/29/2016, 09/03/2016, 04/22/2015. MAMMOGRAPHY TECHNIQUE: 2D and 3D (tomosynthesis) digital mammographic views obtained, with additional images as needed for full coverage. Current study was also evaluated with a Computer Aided Detection (CAD) system. DENSITY D. The breasts are extremely dense, which lowers the sensitivity of mammography. MAMMOGRAPHY FINDINGS Right: Biopsy marker present on the right. Benign-appearing post-surgical changes noted on the right. There are no suspicious masses, calcifications, or other findings in the breast. Left: There are no suspicious masses, calcifications, or other findings in the breast. IMPRESSION: * No evidence of malignancy with benign findings. RECOMMENDATIONS Bilateral * Annual screening mammography. OVERALL ASSESSMENT CATEGORY BI-RADS-2: Benign. The [employer] recommends annual screening mammography beginning at age 40 for women with average risk of breast cancer. ELECTRONICALLY SIGNED: John Stafford M.D. on 09/12/2024 at 08:16:05 PM PT Interpreting Station ID: [id number]
== END ==
PROVIDERS: PCP Family Medicine; Referring Provider Family Medicine; Visit Provider Family Medicine
DX: Z12.31 Encounter for screening mammogram for malignant neoplasm of breast (principal); R92.343 Mammographic extreme density, bilateral breasts; M85.89 Other specified disorders of bone density and structure, multiple sites
CPT/HCPCS: 77063; 77067; 77080

== ENCOUNTER → 2025-04-04 08:08 | Outpatient (CLI) | payer MEDICARE, OTHER, SELFPAY ==
[2022-08-26 14:17] VITALS: BMI 17.9
--- NOTE | 2025-04-04 08:09 | DI.ECHO.S_ITS ---
[facility] : : [id number] : : [place] : : [id number] : : Phone: [phone] Echocardiogram Report + + :Name: OSCAR MATHIS Study Date: 04/04/2025 Height: 67 in : :[facility] ReadingLocation: Weight: 121 lb : : Gender: Female BSA: 1.6 m2 : :: 1955 Age: 69 yrs BP: 131/78 mmHg: :Reason For Study: PVC : :Ordering Physician: Buck Khan : :Derik Performed By: Salazar Mendoza : :Referring: BUCK KHAN : + + Interpretation Summary - The left ventricular contractility is normal. Estimated ejection fraction is greater than 60% with no segmental wall motion abnormalities. Borderline concentric LVH. Normal diastolic function. - The right ventricular contractility is normal. - All cardiac chambers are of normal size. - No significant valvular abnormalities. - No obvious intracardiac shunts. - No obvious intracardiac masses nor thrombi. - No hemodynamically significant pericardial effusion. - Low right-sided filling pressures. Conclusion: Normal biventricular function with no significant valvular abnormalities. When compared with previous echocardiogram, borderline concentric left ventricular hypertrophy is now present. Procedure: A two-dimensional transthoracic echocardiogram with color flow and Doppler was performed. The study quality was technically adequate. Comparison is made with the echocardiogram of 05/15/2024. The patient was in normal sinus rhythm during the exam. Left Ventricle: The left ventricle is normal in size. Left ventricular wall thickness is borderline increased. Left ventricular systolic function is normal. The ejection fraction is estimated to be 60-65%. There are no focal wall motion abnormalities. Normal diastolic function. Right Ventricle: The right ventricle is normal in size and function. Atria: The left atrial size is normal. Right atrial size is normal. There is no Doppler evidence for an interatrial shunt. Mitral Valve: The mitral valve leaflets appear to open well. There is no mitral valve stenosis. There is trace mitral regurgitation. Aortic Valve: The aortic valve is trileaflet. The aortic valve opens well. There is no aortic valve stenosis. No aortic regurgitation is present. Tricuspid Valve: The tricuspid valve leaflets are thin and pliable. There is trace tricuspid regurgitation. The right ventricular systolic pressure is estimated to be at least 17 mmHg based on an estimated right atrial pressure of 3 mm Hg. Pulmonic Valve: The pulmonic valve is not well seen, but is grossly normal. There is a trace or physiologic amount of pulmonic regurgitation. Great Vessels: The aortic root is normal size. The ascending aorta is normal in size. The aortic arch could not be visualized. The pulmonary artery is normal size. The IVC is of normal diameter and collapses greater than 50% with a sniff. This suggests a low right atrial pressure of 3 mm Hg. Pericardium/ Pleura There is no pericardial effusion. MMode/2D Measurements & Calculations LVIDd: 4.0 cm LVOT diam: 2.0 cm LVIDs: 2.5 cm Ao root diam: 3.4 cm FS: 37.3 % asc Aorta Diam: 3.5 cm IVSd: 1.1 cm LVPWd: 1.1 cm LV thomas. diameter/BSA (cm/m^2): 2.5 LV sys. diameter/BSA (cm/m^2): 1.6 LA A2 area: 17.9 cm2 RA long axis: 3.9 cm LA A4 area: 16.7 cm2 RA area: 10.7 cm2 LA length (vol): 5.2 cm RA vol: 24.6 ml LA vol: 48.7 ml RA : 15.1 ml/m2 LA vol index: 29.8 ml/m2 IVC diam: 1.4 cm TAPSE: 2.8 cm Doppler Measurements & Calculations Ao V2 max: 107.3 cm/sec LVOT Max Kevin: 94.0 cm/sec Ao V2 mean: 72.4 cm/sec LV V1 max P.5 mmHg Ao max P.6 mmHg LV V1 VTI: 20.1 cm Ao mean P.4 mmHg ESTEFANI(I,D): 3.1 cm2 Ao V2 VTI: 20.3 cm ESTEFANI(V,D): 2.7 cm2 sev ratio: 0.99 ESTEFANI indexed to BSA (cm^2/m^2): 1.9 MV E max kevin: 76.8 cm/sec TR max kevin: 183.9 cm/sec MV A max kevin: 98.1 cm/sec TR max P.5 mmHg MV E/A: 0.78 PA V2 max: 83.0 cm/sec Med Peak E' Kevin: 6.8 cm/sec PA V2 mean: 61.4 cm/sec E/E' med: 11.4 PA mean P.7 mmHg Lat Peak E' Kevin: 7.7 cm/sec PA pr(Accel): 23.8 mmHg E/E' lat: 10.0 E/e' average: 10.7 MV dec time: 0.19 sec SV(LVOT): 63.1 ml Reading Physician:KEEGAN
--- NOTE | 2025-04-04 17:13 | DI.NM.S_ITS ---
DATE OF SERVICE: 04/04/2025 EXERCISE STRESS TEST INDICATIONS: Chronotropic incompetence, PVCs. CARDIAC STRESS: The patient underwent exercise stress test under the supervision of an attending staff using standard Benji protocol for about 5 minutes and 11 seconds, achieved maximum heart rate of 111, which was 73% of target heart rate, LUDY positive 13%, 7 METS of workload. Resting blood pressure 140/80 and peak blood pressure 170/92 mmHg. Baseline rhythm was sinus with up to [address] depression in inferior leads and V4 to V6. Occasional PVCs. During stress, no new convincing ischemic changes from baseline. No new significant arrhythmias. No chest pain. The patient had significant shortness of breath with exercise. Oxygen saturation 99% during maximum exercise. Normal recovery. CONCLUSION: Exercise stress test did not reveal any obvious inducible ischemic changes. However, it is not conclusive study as target heart rate was not achieved. It is a submaximal exercise stress test. No significant ventricular arrhythmias. However, suspect chronotropic incompetence as the patient achieved only 73% of target heart rate. Normal blood pressure response. Had shortness of breath during exercise and oxygen saturation 99% at that time. No worsening PVCs during exercise. Correlate clinically. Adina Peters - KASSI/daryn/ANGEL doc#: [id number]/job#: [id number] dd: 04/04/2025 16:56:00 dt: 04/04/2025 17:06:00 DICTATING /COPIES TO: Amelia Anne MD COPIES MNE: SHERICE;
== END ==
LOC: NUCM 08:08
PROVIDERS: PCP Family Medicine; Referring Provider Internal Medicine; Visit Provider Internal Medicine
DX: I45.89 Other specified conduction disorders (principal); I49.3 Ventricular premature depolarization
CPT/HCPCS: 93017; 93306